=== PATIENT | female | born 1990 | race Caucasian/White ===

== ENCOUNTER 2016-09-15 02:33 | Emergency (ER) | payer OTHER ==
[2016-09-15] MEDS ORDERED: TORAdol 30 mg Injection IM ONE (02:37)
[2016-09-15] MEDS ORDERED: Cyclobenzaprine 10 MG PO ONE (02:37)
[2016-09-15] MEDS ORDERED: TORAdol 30 mg Injection ONE (02:42)
--- NOTE | 2016-09-15 02:42 | ERPHSYRPT ---
- History of Present Illness Time Seen by Provider: 09/15/16 02:37 Source: patient Exam Limitations: no limitations Physician History: The patient is a 26-year-old female who claims that she woke up yesterday morning with left-sided low back pain. She has tried a heating pad all day without relief. She says it she tosses and turns all she sleeps and thinks that she may have hurt it during her sleep. She has a past medical history of MRSA and back pain. Timing/Duration: yesterday Method of Injury: unknown Quality: aching Back Pain Location: lumbar spine, paraspinous muscles Severity of Pain-Max: moderate Severity of Pain-Current: moderate Modifying Factors: Improves With: other (heat) Associated Symptoms: denies symptoms Previous symptoms: same symptoms as today Allergies/Adverse Reactions: propoxyphene napsylate [From [facility]-N 100] Allergy (Intermediate, Verified 11/19 14:40) "COULDN'T BREATH" Home Medications: No Home Meds 1 ea UD 12/13/15 [History] Hx Tetanus, Diphtheria Vaccination/Date Given: Yes Hx Influenza Vaccination/Date Given: No Hx Pneumococcal Vaccination/Date Given: No - Review of Systems Constitutional: No Fever, No Chills Eyes: No Symptoms Ears, Nose, & Throat: No Symptoms Respiratory: No Cough, No Dyspnea Cardiac: No Chest Pain, No Edema, No Syncope Abdominal/Gastrointestinal: No Abdominal Pain, No Nausea, No Vomiting, No Diarrhea Genitourinary Symptoms: No Dysuria Musculoskeletal: Back Pain Skin: No Rash Neurological: No Dizziness, No Focal Weakness, No Sensory Changes Psychological: No Symptoms Endocrine: No Symptoms Hematologic/Lymphatic: No Symptoms Immunological/Allergic: No Symptoms All Other Systems: Reviewed and Negative - Past Medical History Pertinent Past Medical History: Yes Neurological History: No Pertinent History ENT History: No Pertinent History Cardiac History: No Pertinent History Respiratory History: No Pertinent History Endocrine Medical History: No Pertinent History Musculoskeletal History: No Pertinent History GI Medical History: No Pertinent History History: No Pertinent History Psycho-Social History: No Pertinent History Female Reproductive Disorders: No Pertinent History Other Medical History: 2 csections, cyst removal on left arm - Past Surgical History Past Surgical History: Yes Neuro Surgical History: No Pertinent History Cardiac: No Pertinent History Respiratory: No Pertinent History Gastrointestinal: No Pertinent History Genitourinary: No Pertinent History Musculoskeletal: No Pertinent History Female Surgical History: Section, Tubal Ligation Other Surgical History: cyst removed from arm c/s x2 - Social History Smoking Status: Current every day smoker How long have you smoked: YRS Exposure to second hand smoke: No Drug Use: none Patient Lives Alone: No Significant Family History: no pertinent family hx - Female History Hx Now: No - Physical Exam General Appearance: no apparent distress, alert Eye Exam: PERRL/EOMI, eyes nml inspection Ears, Nose, Throat Exam: normal ENT inspection Neck Exam: normal inspection, non-tender, supple, full range of motion, No meningismus, No midline tenderness Respiratory Exam: normal breath sounds, lungs clear, No respiratory distress Cardiovascular Exam: regular rate/rhythm, normal heart sounds Gastrointestinal Exam: soft, No tenderness, No mass Pelvic Exam: not done Rectal Exam: not done Back Exam: muscle spasm (Examination of the lower back is significant for tenderness to palpation of the left lower paraspinous muscle. This reproduces her pain.) Extremity Exam: normal inspection, normal range of motion, No calf tenderness, No pedal edema Neurologic Exam: alert, oriented x 3, cooperative, bead filler II-XII nml as tested, normal mood/affect, nml station & gait, sensation nml, No motor deficits Skin Exam: normal color, warm, dry, No rash SpO2 Interpretation: normal - Progress Progress: pain not gone completely Counseled pt/family regarding: diagnosis - Departure Time of Disposition: 02:42 Departure Disposition: Home Clinical Impression: Back pain Condition: Stable Critical Care Time: No Additional Instructions: You have low back pain that is caused by a spasm in your left paraspinous muscle. You were given a Toradol 60 mg IM injection in the ER. You were also given Flexeril 10 mg pill to relax a spasm. Continue to take Flexeril 5 mg every 8 hours as needed. Use ice on the area as needed. Follow-up with a local family doctor as needed. Prescriptions: Cyclobenzaprine HCl [Flexeril] 5 mg PO Q8H PRN PRN #6 tablet PRN Reason: Pain
[2016-09-15] MEDS ORDERED: Cyclobenzaprine 10 MG ONE (02:43)
[2016-09-15 02:46] VITALS: O2SAT 98
[2016-09-15 03:21] LABS: ADD URINE CULTURE? YES (NO); Bacteria FEW /HPF (NEGATIVE); Bilirubin NEGATIVE (NEGATIVE); Blood TRACE NON-HEM Ery/ul (0-5); COMPLETE URINE MICROSCOPIC? YES; Collection Type CLEAN CATCH; Epithelial Cells FEW /HPF (FEW); Glucose NEGATIVE (NEGATIVE); Leukocyte Esterase 1+ (NEGATIVE); Mucus SLIGHT /HPF (NEGATIVE)
[2016-09-15 03:32] VITALS: BP 110/68; PULSE 110
== END 2016-09-15 03:32 | disposition home or self-care (01) ==
LOC: ED 02:33
DX: M54.5 Low back pain (principal); M62.830 Muscle spasm of back
CPT/HCPCS: 81000; 87077; 87086; 87186; 96372; 99283; J1885; A9270-GY

== ENCOUNTER 2016-09-18 23:33 | Emergency (ER) | payer OTHER ==
[2016-09-18 23:47] VITALS: BP 117/87; PULSE 106; O2SAT 99
[2016-09-19] MEDS ORDERED: TORAdol 30 mg Injection IM ONE (00:01)
--- NOTE | 2016-09-19 00:08 | ERPHSYRPT ---
- History of Present Illness Time Seen by Provider: 09/18/16 23:56 Source: patient Exam Limitations: no limitations Patient Subjective Stated Complaint: pt states she was getting out of a truck and missed the step and her leg went between the 2 steps. c/o pain in the back of her ankle radiating up to rt hip with movement. also states she has numbness to 2nd and 3rd digits on rt foot since injury Triage Nursing Assessment: pt alert and oriented, asnwers questions approp. pt ambulatory with limping gait noted. respirations nonlabored with lungs cta. skin pink warm and dry. pedal pulse and cap refill to rt leg wnl. pt reports numbness in 2nd and 3rd digits to rt foot. pt states she is unable to dorsiflex rt foot. Physician History: 26-year-old white female arrives with complaint of pain right posterior ankle right leg symptoms since 5:00 this evening. According to patient she was getting out of a truck in her foot and fell down between 2 stairs on the trunk. Patient is complaining of pain in the posterior leg and ankle she states she has pain when she tries to move her ankle especially with dorsiflexion. She states that pain radiates up her leg. Past medical history includes a cyst of the left arm. Past surgical history includes and tubal ligation. Patient was recently seen here on September 15, 2016 for back pain. Method of Injury: other (caught leg between 2 steps when getting out of truck) Occurred: this evening (5 PM) Quality: constant Severity of Pain-Max: moderate Severity of Pain-Current: moderate Lower Extremities Pain: leg: right, ankle: right Modifying Factors: Improves With: movement Associated Symptoms: other (pain with movement of left ankle radiates up posterior right leg) Allergies/Adverse Reactions: propoxyphene napsylate [From Darvocet-N 100] Allergy (Intermediate, Verified 02:57) "COULDN'T BREATH" morphine Allergy (Verified 09/15/16 02:58) Home Medications: Cephalexin Mh 500 mg [Keflex 500 mg] 500 mg PO QID 09/18/16 [History] Hx Tetanus, Diphtheria Vaccination/Date Given: Yes Hx Influenza Vaccination/Date Given: No Hx Pneumococcal Vaccination/Date Given: No - Review of Systems Constitutional: No Fever, No Chills Eyes: No Symptoms Ears, Nose, & Throat: No Symptoms Respiratory: No Cough, No Dyspnea Cardiac: No Chest Pain, No Edema, No Syncope Abdominal/Gastrointestinal: No Abdominal Pain, No Nausea, No Vomiting, No Diarrhea Genitourinary Symptoms: No Dysuria Musculoskeletal: Other (Right leg and ankle pain) Skin: No Symptoms Neurological: Parasthesia (paresthesia to right second and third toe) Psychological: No Symptoms Endocrine: No Symptoms All Other Systems: Reviewed and Negative - Past Medical History Pertinent Past Medical History: Yes Neurological History: No Pertinent History ENT History: No Pertinent History Cardiac History: No Pertinent History Respiratory History: No Pertinent History Endocrine Medical History: No Pertinent History Musculoskeletal History: No Pertinent History GI Medical History: No Pertinent History History: No Pertinent History Psycho-Social History: No Pertinent History Female Reproductive Disorders: No Pertinent History Other Medical History: 2 csections, cyst removal on left arm - Past Surgical History Past Surgical History: Yes Neuro Surgical History: No Pertinent History Cardiac: No Pertinent History Respiratory: No Pertinent History Gastrointestinal: No Pertinent History Genitourinary: No Pertinent History Musculoskeletal: No Pertinent History Female Surgical History: Section, Tubal Ligation Other Surgical History: cyst removed from arm c/s x2 - Social History Smoking Status: Current every day smoker How long have you smoked: YRS Exposure to second hand smoke: No Drug Use: none Patient Lives Alone: Yes Significant Family History: no pertinent family hx - Female History Hx Last Menstrual Period: current Hx Now: No - Nursing Vital Signs Nursing Vital Signs: Initial Vital Signs Temperature 98.8 F Temperature Source Oral Pulse Rate 106 Respiratory Rate 22 Blood Pressure [] 117/87 Pain Intensity 10 - Physical Exam General Appearance: mild distress Eyes, Ears, Nose, Throat Exam: moist mucous membranes Neck Exam: non-tender, supple Cardiovascular/Respiratory Exam: chest non-tender, normal breath sounds, regular rate/rhythm, no respiratory distress Gastrointestinal/Abdominal Exam: non-tender, guarding Back Exam: normal inspection, No vertebral tenderness Hips Exam: bilateral: non-tender, normal inspection, normal range of motion Legs Exam: right leg: other (patient able to fully extend knee and leg right leg on bed without tenderness no hip tenderness no knee tenderness positive plantar flexion with squeezing patient's calf, dorsal pedal posterior tibial pulses intact 2 over 4 complains of pain with palpation lower right leg, pain with palpation of dorsal pedal posterior pulse good capillary refill all toes sensation intact all toes), left leg: non-tender, normal inspection, normal range of motion Knees Exam: bilateral knee: non-tender, normal inspection, normal range of motion, no evidence of injury Ankle Exam: left ankle: non-tender, normal inspection, normal range of motion, bilateral ankle: no evidence of injury Foot Exam: right foot: other (Patient complains of pain when dorsal proximal footpalpated and when dorsal pedal posterior tibial pulses palpated good capillary refill all toes sensation intact all toes), left foot: non-tender, normal inspection, normal range of motion, bilateral foot: no evidence of injury Neuro/Tendon Exam: normal sensation, normal motor functions Mental Status Exam: alert, oriented x 3, cooperative Skin Exam: normal color, warm, dry SpO2 Interpretation: normal (99() SpO2: 99 Oxygen Delivery: Room Air - Course Nursing assessment & vital signs reviewed: Yes - Radiology Exams Right Ankle X-ray Interpretation: Interpreted by me, Negative, No Fracture, No Subluxation Right Lower Leg X-ray Interpretation: Interpreted by me, Negative, No Fracture, No Subluxation Ordered Tests: Active Orders 24 hr Category Date Time Status Dex Bandage Application -[facility] STAT Care 09/19/16 00:42 Active Crutches STAT Care 09/19/16 00:42 Active ANKLE (3 VIEWS) Stat Exams 09/19/16 00:00 Taken LOWER LEG Stat Exams 09/19/16 00:00 Taken Medication Summary Discontinued Medications Generic Name Dose Route Start Last Admin Trade Name Arelis PRN Reason Stop Dose Admin Ketorolac Tromethamine 60 mg 09/19/16 00:01 09/19/16 00:17 Toradol 30 Mg Injection IM 09/19/16 00:02 60 mg STAT ONE Administration Ketorolac Tromethamine Confirm 09/19/16 00:15 Toradol 30 Mg Injection Administered 09/19/16 00:16 Dose 60 mg .ROUTE .STK-MED ONE - Progress Progress: improved Progress Note: 09/19/16 00:11 This is a 26-year-old white female she arrives with complaint of pain in her right lower leg right ankle after she states that her right leg went down between 2 stairs when getting out of a truck at a proximally 5:00. Patient complains of pain in the lower leg and the ankle she states she has pain with plantar flexion of her ankle. On physical examination patient is able to sit with her leg on the bed with her knee fully extended and her heel resting on the bed. She has plantar flexion with squeezing her calf she complains of pain with palpation of the lower leg and actually complains of pain when her posterior tibial dorsal pedal pulses are palpated. There is no obvious ecchymosis no swelling. She has good capillary refill to the right foot sensation is intact all right toes. Will go ahead and give patient Toradol 60 mg IM obtain x-ray of the patient's right ankle and leg. 09/19/16 00:43 X-ray of the patient's ankle and the right tib-fib both negative. Patient improved but still some tenderness on the right distal lateral lower leg. Will go ahead and apply Dex wrap to the right ankle. Place patient on crutches. Write for Naprosyn for pain. Patient ice and elevate her ankle crutches weightbearing as tolerated patient follow-up with her family doctor if symptoms are worse no better in 48 hours or persist longer than one week. 09/19/16 01:34 Patient's x-rays result results were reviewed with the patient I indicated that I did not see any fractures him that x-rays would be reread tomorrow. Talked with the patient and told her that we would go ahead and place Dex wrap on her right ankle give her crutches weightbearing as tolerated and write for Naprosyn for her pain. Patient indicated understanding of this and I went ahead and wrote for orders for crutches, Dex wrap, and wrote prescription on the computer for Naprosyn. Unfortunately however the nurse reports that the patient refused Dex wrap and crutches and left without signing stating that she would find another doctor. - Departure Time of Disposition: 00:44 Departure Disposition: Home Clinical Impression: Right leg pain, Musculoskeletal strain Right ankle pain Qualifiers: Chronicity: acute Qualified Code(s): M25.571 - Pain in right ankle and joints of right foot Condition: Fair Critical Care Time: No Referrals: DOCTOR,NO FAMILY [Primary Care Provider] - Instructions: Ankle Pain, Leg Pain Additional Instructions: Return home. Ice and elevate right leg and ankle 24-48 hours. Crutches weightbearing as tolerated. Follow-up with your family doctor if symptoms are worse, no better in 48 hours or persist longer than one week. Return for acute distress or for severe symptoms. Naprosyn 500 mg orally twice a day with food as needed for pain. Your x-rays have been preliminarily read it'll be reread tomorrow you will be contacted if any discrepancies are noted. Prescriptions: Naproxen [Naprosyn] 500 mg PO BIDWMEALS #20 tablet
[2016-09-19] MEDS ORDERED: TORAdol 30 mg Injection ONE (00:15)
--- NOTE | 2016-09-19 09:08 | XRAY ---
Indication: Posterior ankle pain following fall. Comparison: December 19, 2010. 3 views of the right ankle again demonstrates normal bones, articulation, and soft tissues with incidental tiny cuboid accessory ossicle.
--- NOTE | 2016-09-19 09:10 | XRAY ---
Indication: Pain following fall. Comparison: None. 2 views of the right lower leg demonstrates normal bones, articulation, and soft tissues with incidental bipartite patella.
== END 2016-09-19 01:14 | disposition home or self-care (01) ==
LOC: ED 23:33
DX: M25.571 Pain in right ankle and joints of right foot (principal); M79.604 Pain in right leg; T14.8 Other injury of unspecified body region; W10.8XXA Fall (on) (from) other stairs and steps, initial encounter
CPT/HCPCS: 73590; 73610; 96372; 99284; J1885

== ENCOUNTER 2017-02-03 22:50 | Emergency (ER) | payer SELFPAY ==
[2017-02-03] MEDS ORDERED: MOTRIN 600 MG PO ONE (23:12)
[2017-02-03 23:14] VITALS: BP 131/88; PULSE 72; O2SAT 98
[2017-02-03] MEDS ORDERED: MOTRIN 600 MG ONE (23:16)
--- NOTE | 2017-02-03 23:17 | ERPHSYRPT ---
- History of Present Illness Time Seen by Provider: 02/03/17 23:09 Source: patient Patient Subjective Stated Complaint: twisted left foot going down stair. denies ankle for knee pain.. Triage Nursing Assessment: alert and oriented. left foot pain with swelling and brusing. staets twisted foot going down stairs. denies ankle or knee pain..states did not go down just twisted foot. + pedal pulse present. Ice bag placed on arrival Physician History: CC: left foot pain Hx: 27 y/o patient with no local doctor. She twisted left foot with inversion injury on a step one hour ago. Pain, bruising, swelling left foot. No other injuries. States not . In opioid recovery. Severity of Pain-Max: moderate Severity of Pain-Current: moderate Lower Extremities Pain: foot: left Allergies/Adverse Reactions: propoxyphene napsylate [From [employer]-N 100] Allergy (Intermediate, Verified 02:57) "COULDN'T BREATH" morphine Allergy (Verified 09/15/16 02:58) Home Medications: Cephalexin Mh 500 mg [Keflex 500 mg] 500 mg PO QID 09/18/16 [History] Hx Tetanus, Diphtheria Vaccination/Date Given: Yes Hx Influenza Vaccination/Date Given: No Hx Pneumococcal Vaccination/Date Given: No Immunizations Up to Date: Yes - Review of Systems Constitutional: No Symptoms Musculoskeletal: Injury (left foot), No Back Pain, No Neck Pain Neurological: No Focal Weakness, No Parasthesia - Past Medical History Pertinent Past Medical History: Yes Neurological History: No Pertinent History ENT History: No Pertinent History Cardiac History: No Pertinent History Respiratory History: No Pertinent History Endocrine Medical History: No Pertinent History Musculoskeletal History: No Pertinent History GI Medical History: No Pertinent History History: No Pertinent History Psycho-Social History: No Pertinent History Female Reproductive Disorders: No Pertinent History Other Medical History: 2 csections, cyst removal on left arm - Past Surgical History Past Surgical History: Yes Neuro Surgical History: No Pertinent History Cardiac: No Pertinent History Respiratory: No Pertinent History Gastrointestinal: No Pertinent History Genitourinary: No Pertinent History Musculoskeletal: No Pertinent History Female Surgical History: Section, Tubal Ligation Other Surgical History: cyst removed from arm c/s x2 - Social History Smoking Status: Current every day smoker How long have you smoked: YRS Exposure to second hand smoke: No Drug Use: none Patient Lives Alone: Yes Significant Family History: no pertinent family hx - Female History Hx Last Menstrual Period: 1 month Hx Now: No - Nursing Vital Signs Nursing Vital Signs: Initial Vital Signs Temperature 98.0 F 02/03/17 23:03 Pulse Rate 72 02/03/17 23:03 Respiratory Rate 16 02/03/17 23:03 Blood Pressure 131/88 02/03/17 23:03 O2 Sat by Pulse Oximetry 98 02/03/17 23:03 Pain Scale Pain Intensity 7 - Physical Exam General Appearance: alert Neck Exam: supple Cardiovascular/Respiratory Exam: regular rate/rhythm Neuro/Tendon Exam: normal sensation, normal motor functions Mental Status Exam: alert, oriented x 3, cooperative Skin Exam: warm, dry SpO2: 98 Oxygen Delivery: Room Air Comments: left foot prox 5th tender, bruised, swollen. No ankle tenderness. No fibular head tenderness. Skin intact. - Course Nursing assessment & vital signs reviewed: Yes - Radiology Exams left foot X-ray Interpretation: Interpreted by me, No Fracture, Nml Alignment Ordered Tests: Active Orders 24 hr Category Date Time Status Dex Bandage Application -[facility] STAT Care 02/03/17 23:31 Ordered Cold Application STAT Care 02/03/17 23:12 Active Crutches STAT Care 02/03/17 23:31 Ordered Splint STAT Care 02/03/17 23:31 Ordered FOOT (MINIMUM 3 VIEWS) Stat Exams 02/03/17 23:13 Taken Medication Summary Discontinued Medications Generic Name Dose Route Start Last Admin Trade Name Surajq PRN Reason Stop Dose Admin Ibuprofen 600 mg 02/03/17 23:12 02/03/17 23:17 Motrin 600 Mg PO 02/03/17 23:13 600 mg STAT ONE Administration Ibuprofen Confirm 02/03/17 23:16 Motrin 600 Mg Administered 02/03/17 23:17 Dose 600 mg .ROUTE .STK-MED ONE - Progress Progress Note: 02/03/17 23:32 Prelim xray no fx. Dex, darco post op shoe, crutches. She plans follow up with Dr Brito who sees her daughter. Counseled pt/family regarding: diagnosis, need for follow-up, rad results - Departure Time of Disposition: 23:32 Departure Disposition: Home Clinical Impression: Sprain of left foot Qualifiers: Encounter type: initial encounter Qualified Code(s): S93.602A - Unspecified sprain of left foot, initial encounter Condition: Stable Critical Care Time: No Referrals: DOCTOR,NO FAMILY [Primary Care Provider] - CRISSY BRITO [ACTIVE STAFF] - Instructions: Use Crutches, Ligament Sprains Additional Instructions: SPRAINS/STRAINS/CONTUSIONS 1. Rest the affected area as much as possible for the next few days. 2. Apply ice to the affected area for 20-30 minutes at a time, several times a day. 3. If you receive an elastic wrap, wear it only while awake for comfort and support. Re-wrap the elastic wrap if it feels too tight or too loose. 4. If swelling is present, elevate the affected part above the level of the heart for at least 2 to 3 days. 5. Use splints, slings, or crutches as instructed. 6. Watch for severe swelling, coldness, numbness, and discoloration of the fingers and toes. See your family physician or return to the emergency department if any of these are noted. Rx ibuprofen. Follow up with Dr Brito or a family doctor next week. Prescriptions: Ibuprofen 600 mg PO Q6H PRN PRN #20 tablet PRN Reason: Pain
--- NOTE | 2017-02-04 07:38 | XRAY ---
Indication: Pain and swelling following injury. Comparison: None 3 nonweightbearing views of the left foot demonstrates mild soft tissue swelling near the base of the fifth metatarsal. No other bony, articular, or soft tissue abnormalities.
== END 2017-02-03 23:59 | disposition home or self-care (01) ==
LOC: ED 22:50
DX: S93.602A Unspecified sprain of left foot, initial encounter (principal); X50.0XXA Overexertion from strenuous movement or load, initial encounter
CPT/HCPCS: 73630; 99284; A9270-GY

== ENCOUNTER 2017-07-25 10:21 | Emergency (ER) | payer OTHER ==
[2017-07-25] MEDS ORDERED: TORAdol 30 mg Injection IM ONE (10:49)
[2017-07-25] MEDS ORDERED: Phenergan 25 MG INJ IM ONE (10:50)
--- NOTE | 2017-07-25 10:50 | ERPHSYRPT ---
- History of Present Illness Time Seen by Provider: 07/25/17 10:39 Source: patient Exam Limitations: no limitations Patient Subjective Stated Complaint: PT states "I woke up this morning and my right eye was blurry and I had pain on the left side of my head going down into my neck." Triage Nursing Assessment: Pt alert and oriented X3, skin pwd Pt ambulates with an upright steady giat, able to speak in clear full sentences. pt holding her head, unable to get comfortable. Physician History: The patient is a 27-year-old female with her mother complaining that she developed a left-sided headache and blurry vision in her right eye this morning. She took a Tylenol PM and went to sleep for a brief period of time. She woke up and noticed a headache on the left side was still there and she had intermittent blurry vision in her right eye. She has a history of migraine headaches. Some of her migraine headaches have been involved garbled speech with the headache. Today she avoids light and noise. She has vomited. She denies numbness or tingling. Her past medical history significant for migraine headaches, MRSA infections, back pain, and drug abuse. She specifically did not want to have any narcotic pain medicine today. Timing/Duration: today, worse Quality: throbbing Head Pain Location: temporal (left), parietal (left) Severity of Pain-Max: moderate Severity of Pain-Current: moderate Recent Head Trauma: occasional headaches Modifying Factors: Improves With: exposure to light, noise Associated Symptoms: nausea/vomiting, sensitive to light, vision changes, visual disturbance Previous symptoms: same symptoms as today Allergies/Adverse Reactions: propoxyphene napsylate [From Darvocet-N 100] Allergy (Intermediate, Verified 10:25) "COULDN'T BREATH" morphine Allergy (Verified 07/25/17 10:25) Home Medications: No Reportable Medications [No Reported Medications] 07/25/17 [History] Hx Tetanus, Diphtheria Vaccination/Date Given: Yes Hx Influenza Vaccination/Date Given: No Hx Pneumococcal Vaccination/Date Given: No Immunizations Up to Date: Yes - Review of Systems Constitutional: No Fever, No Chills Eyes: Photophobia, Vision Changes Ears, Nose, & Throat: No Symptoms Respiratory: No Cough, No Dyspnea Cardiac: No Chest Pain, No Edema, No Syncope Abdominal/Gastrointestinal: Nausea, Vomiting Genitourinary Symptoms: No Dysuria Musculoskeletal: No Back Pain, No Neck Pain Skin: No Rash Neurological: Headache, No Focal Weakness, No Parasthesia, No Sensory Changes, No Speech Changes Psychological: No Symptoms Endocrine: No Symptoms Hematologic/Lymphatic: No Symptoms Immunological/Allergic: No Symptoms All Other Systems: Reviewed and Negative - Past Medical History Pertinent Past Medical History: Yes Neurological History: No Pertinent History ENT History: No Pertinent History Cardiac History: No Pertinent History Respiratory History: No Pertinent History Endocrine Medical History: No Pertinent History Musculoskeletal History: No Pertinent History GI Medical History: No Pertinent History History: No Pertinent History Psycho-Social History: No Pertinent History Female Reproductive Disorders: No Pertinent History Other Medical History: 2 csections, cyst removal on left arm - Past Surgical History Past Surgical History: Yes Neuro Surgical History: No Pertinent History Cardiac: No Pertinent History Respiratory: No Pertinent History Gastrointestinal: No Pertinent History Genitourinary: No Pertinent History Musculoskeletal: No Pertinent History Female Surgical History: Section, Tubal Ligation Other Surgical History: cyst removed from arm c/s x2 - Social History Smoking Status: Current every day smoker How long have you smoked: years Exposure to second hand smoke: Yes Drug Use: none Patient Lives Alone: No Significant Family History: no pertinent family hx - Female History Hx Last Menstrual Period: 06/23/2017 Hx Now: No - Nursing Vital Signs Nursing Vital Signs: Initial Vital Signs Temperature 98.3 F 07/25/17 10:24 Pulse Rate 60 07/25/17 10:24 Respiratory Rate 18 07/25/17 10:24 Blood Pressure 140/89 07/25/17 10:24 O2 Sat by Pulse Oximetry 99 07/25/17 10:24 Pain Scale Pain Intensity 8 - Physical Exam General Appearance: moderate distress Eye Exam: PERRL/EOMI, photophobia Ears, Nose, Throat Exam: normal ENT inspection, moist mucous membranes Neck Exam: normal inspection, supple, full range of motion, No meningismus Respiratory Exam: normal breath sounds, lungs clear Cardiovascular Exam: regular rate/rhythm, normal heart sounds Gastrointestinal/Abdominal Exam: soft, No tenderness, No distention Back Exam: normal inspection, normal range of motion Extremity Exam: normal inspection Mental Status Exam: alert, oriented x 3, 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 Exam: normal hearing, normal speech, PERRL, tongue midline, No abnormal eye position, No abnormal gag reflex, No abnormal pupil position, No abnormal speech , No facial asymmetry, No facial droop, No facial paresthesias, No facial weakness, No gaze palsy, No hearing deficit (R), No hearing deficit (L), No tongue deviation to R, No tongue deviation to L Coordination/Gait Exam: normal cerebellar function Motor/Sensory Exam: no motor deficit, no sensory deficit Skin Exam: normal color, warm, dry, No rash SpO2 Interpretation: normal SpO2: 99 Oxygen Delivery: Room Air - Departure Time of Disposition: 10:56 Departure Disposition: Home Clinical Impression: Migraine headache with aura Condition: Stable Critical Care Time: No Referrals: DOCTOR,NO FAMILY [Primary Care Provider] - Additional Instructions: You have a migraine headache with visual changes. You were given Toradol 60 mg and Phenergan 50 mg by IM in the ER. Please rest the rest of the day in a dark quiet room. Follow-up with your primary medical doctor if the condition has not improved.
[2017-07-25] MEDS ORDERED: Phenergan 25 MG INJ ONE (10:53)
[2017-07-25] MEDS ORDERED: TORAdol 30 mg Injection ONE (10:53)
[2017-07-25 11:17] VITALS: BP 132/78; PULSE 52; O2SAT 98
== END 2017-07-25 11:38 | disposition home or self-care (01) ==
LOC: ED 10:21
DX: G43.109 Migraine with aura, not intractable, without status migrainosus (principal); R11.2 Nausea with vomiting, unspecified
CPT/HCPCS: 96372; 99284; J1885; J2550

== ENCOUNTER 2018-03-01 18:01 | Emergency (ER) | payer OTHER ==
[2018-03-01 18:51] VITALS: BP 128/83
--- NOTE | 2018-03-01 19:30 | ERPHSYRPT ---
- History of Present Illness Time Seen by Provider: 03/01/18 18:55 Source: patient Exam Limitations: no limitations Patient Subjective Stated Complaint: STATES HAS BEEN HAVING DIZZINESS FOR ONE WEEK. ALSO HAS HAD URI SYMPTOMS FOR TWO WEEKS. STATES EARS ARE POPPING. Triage Nursing Assessment: AMBULATED TO ROOM PER SELF. SLIGHTLY UNSTEADY ON FEET. DENIES ANY N/V/D. A/O TIMES THREE. Physician History: 28 y/o white female presents with one week h/o ears popping and sinus pressure. in addition, she does complain of dizziness. she has chronic low back pain. no head or back injury. she has a mild cough. Timing/Duration: week(s) (1) Severity: mild Associated Symptoms: cough, No nausea, No vomiting Allergies/Adverse Reactions: propoxyphene napsylate [From Darvocet-N 100] Allergy (Intermediate, Verified 18:48) "COULDN'T BREATH" morphine Allergy (Verified 03/01/18 18:48) Hx Tetanus, Diphtheria Vaccination/Date Given: Yes Hx Influenza Vaccination/Date Given: No Hx Pneumococcal Vaccination/Date Given: No - Review of Systems Constitutional: No Symptoms Eyes: No Symptoms Ears, Nose, & Throat: Nose Congestion Respiratory: Cough, No Dyspnea, No Stridor, No Wheezing Cardiac: No Symptoms, No Chest Pain, No Palpitations, No Syncope Abdominal/Gastrointestinal: No Symptoms, No Abdominal Pain, No Nausea, No Vomiting, No Diarrhea Genitourinary Symptoms: No Symptoms, No Dysuria, No Frequency, No Hematuria Musculoskeletal: No Symptoms Skin: No Symptoms Neurological: Dizziness Psychological: No Symptoms Endocrine: No Symptoms Hematologic/Lymphatic: No Symptoms Immunological/Allergic: No Symptoms All Other Systems: Reviewed and Negative - Past Medical History Pertinent Past Medical History: Yes Neurological History: No Pertinent History ENT History: No Pertinent History Cardiac History: No Pertinent History Respiratory History: No Pertinent History Endocrine Medical History: No Pertinent History Musculoskeletal History: No Pertinent History GI Medical History: No Pertinent History History: No Pertinent History Psycho-Social History: No Pertinent History Female Reproductive Disorders: No Pertinent History Other Medical History: 2 csections, cyst removal on left arm - Past Surgical History Past Surgical History: Yes Neuro Surgical History: No Pertinent History Cardiac: No Pertinent History Respiratory: No Pertinent History Gastrointestinal: No Pertinent History Genitourinary: No Pertinent History Musculoskeletal: No Pertinent History Female Surgical History: Section, Tubal Ligation Other Surgical History: cyst removed from arm c/s x2 - Social History Smoking Status: Current every day smoker How long have you smoked: 10 Exposure to second hand smoke: No Drug Use: none Patient Lives Alone: No Significant Family History: no pertinent family hx - Female History Hx Last Menstrual Period: 03/01/18 Hx Now: No - Nursing Vital Signs Nursing Vital Signs: Initial Vital Signs Temperature 98.1 F 03/01/18 18:40 Pulse Rate 65 03/01/18 18:40 Respiratory Rate 16 03/01/18 18:40 Blood Pressure 128/83 03/01/18 18:40 O2 Sat by Pulse Oximetry 99 03/01/18 18:40 Pain Scale Pain Intensity 0 - Physical Exam General Appearance: no apparent distress, alert, anxiety Eye Exam: PERRL/EOMI Ears, Nose, Throat Exam: normal ENT inspection, pharynx normal, moist mucous membranes Neck Exam: normal inspection, non-tender, supple, full range of motion Respiratory Exam: normal breath sounds, lungs clear, airway intact, No chest tenderness, No respiratory distress, No accessory muscle use, No rhonchi, No wheezing, No stridor Cardiovascular Exam: regular rate/rhythm, normal heart sounds, normal peripheral pulses Gastrointestinal/Abdomen Exam: soft, normal bowel sounds, No tenderness, No guarding, No rebound Pelvic Exam: not done Rectal Exam: not done Back Exam: normal inspection, normal range of motion, vertebral tenderness, No CVA tenderness Extremity Exam: normal inspection, normal range of motion, pelvis stable Neurologic Exam: alert, oriented x 3, 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, 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 Skin Exam: normal color, warm, dry Lymphatic Exam: No adenopathy SpO2 Interpretation: normal SpO2: 99 Oxygen Delivery: Room Air - Course Nursing assessment & vital signs reviewed: Yes Ordered Tests: Active Orders 24 hr Category Date Time Status CULTURE,URINE Stat Lab 03/01/18 20:25 Received HCG,QUALITATIVE URINE Stat Lab 03/01/18 20:25 Completed UA W/RFX UR CULTURE Stat Lab 03/01/18 20:25 Completed Lab/Rad Data: Laboratory Results 03/01/18 03/01/18 Range/Units 20:25 20:25 Urine Color YELLOW (YELLOW) Urine Appearance SLIGHTLY CLOUDY (CLEAR) Urine pH 7.0 (5-6) Ur Specific [place] 1.008 (1.005-1.025) Urine Protein NEGATIVE (Negative) Urine Ketones NEGATIVE (NEGATIVE) Urine Blood NEGATIVE (0-5) [place]/ul Urine Nitrite NEGATIVE (NEGATIVE) Urine Bilirubin NEGATIVE (NEGATIVE) Urine Urobilinogen 4 (0-1) mg/dL Ur Leukocyte Esterase MODERATE (NEGATIVE) Urine WBC (Auto) 3-5 (0-5) /HPF Urine RBC (Auto) NONE (0-2) /HPF U Epithel Cells (Auto) RARE (FEW) /HPF Urine Bacteria (Auto) NONE SEEN (NEGATIVE) /HPF Urine Yeast (Budding) Moderate (NEGATIVE) /HPF Urine Culture Reflexed YES (NO) Urine Glucose NEGATIVE (NEGATIVE) mg/dL Urine HCG, Qual NEGATIVE (Negative) - Progress Progress: unchanged, re-examined Counseled pt/family regarding: lab results, diagnosis, need for follow-up - Departure Time of Disposition: 21:20 Departure Disposition: Home Clinical Impression: UTI (urinary tract infection), Yeast infection Condition: Stable Critical Care Time: No Referrals: DOCTOR,NO FAMILY [Primary Care Provider] - Additional Instructions: drink plenty of fluids. follow up with primary doctor for persistent symptoms Prescriptions: Ciprofloxacin [Cipro 500 MG] 500 mg PO BID #14 tablet Fluconazole 100 mg [Diflucan 100 MG] 100 mg PO DAILY 3 Days #3 tablet
[2018-03-01 20:59] LABS: Appearance SLIGHTLY CLOUDY (CLEAR); Bilirubin NEGATIVE (NEGATIVE); Blood NEGATIVE Ery/ul (0-5); Glucose NEGATIVE (NEGATIVE); Ketones NEGATIVE (NEGATIVE); Leukocyte Esterase MODERATE (NEGATIVE); Nitrite NEGATIVE (NEGATIVE); Protein,Urine Dip NEGATIVE (Negative); Specific Gravity 1.008 (1.005-1.025); Urobilinogen 4 mg/dL (0-1)
[2018-03-01] MEDS ORDERED: Levofloxacin 250MG Tablet PO ONE (21:23)
[2018-03-01] MEDS ORDERED: Levofloxacin 500 MG Tablet ONE (21:28)
[2018-03-01] MEDS ORDERED: Diflucan 100 MG ONE (21:34)
[2018-03-01 22:07] VITALS: PULSE 78; O2SAT 98
[2018-03-02] MEDS ORDERED: Diflucan 100 MG PO ONE (21:25)
== END 2018-03-01 22:02 | disposition home or self-care (01) ==
LOC: ED 18:01
DX: N39.0 Urinary tract infection, site not specified (principal); B37.9 Candidiasis, unspecified; R42 Dizziness and giddiness; F17.200 Nicotine dependence, unspecified, uncomplicated
CPT/HCPCS: 81001; 84703; 87086; 99283; A9270-GY

== ENCOUNTER 2018-03-06 13:42 | Emergency (ER) | payer OTHER ==
[2018-03-06] MEDS ORDERED: ANTIVERT 25 MG PO ONE (14:05)
[2018-03-06] MEDS ORDERED: Sodium Chloride 0.9% 1000 ML 1,000 ML IV STA (14:05)
[2018-03-06 14:26] LABS: BASOPHIL % 0.8 % (0.0-0.4); Basophil (Absolute #) 0.09 (0-0.4); Eosinophil % 4.9 % (0.00-5.0); Eosinophil (Absolute #) 0.58 (0-0.5); Granulocyte Absolute (ANC) 6.64 (1.4-6.9); Granulocytes % 56.4 % (36.0-66.0); Hematocrit 44.8 % (35-47); Lymphocyte (Absolute #) 3.31 (1.0-4.6); Lymphocytes % 28.1 % (24.0-44.0); Mean Cell Volume 93.5 fl (78-100); Mean Corpuscular Hemoglobin 31.3 pg (26-32); Mean Corpuscular Hgb Concent. 33.5 g/dl (32-36); Mean Platelet Volume 10.8 fl (6-9.5); Monocyte (Absolute #) 1.16 (0.0-1.3); Monocytes % 9.8 % (0.0-12.0); Platelet Count 252 K/mm3 (150-450); Red Blood Count 4.79 M/mm3 (4.1-5.4); White Blood Count 11.8 K/mm3 (4.0-10.5)
[2018-03-06 14:41] LABS: ALBUMIN 4.1 g/dL (3.5-5.0); ALKALINE PHOSPHATASE 50 U/L (38-126); ANION GAP 11.9 MEQ/L (5-15); BLOOD UREA NITROGEN 8 mg/dL (7-17); CHLORIDE 102 mmol/L (98-107); Calcium 9.6 mg/dL (8.4-10.2); Carbon Dioxide 28 mmol/L (22-30); Creatinine 1 0.65 mg/dL (0.52-1.04); Glucose 83 mg/dL (74-106); Potassium 4.9 mmol/L (3.5-5.1); SGOT/AST 128 U/L (14-36); SGPT/ALT 197 U/L (0-35); SODIUM 138 mmol/L (137-145); Total Protein 6.9 g/dL (6.3-8.2)
[2018-03-06 14:43] LABS: ETHYL ALCOHOL < 10 mg/dL (0-10)
[2018-03-06] MEDS ORDERED: Sodium Chloride 0.9% 1000 ML 1,000 ML ONE (14:47)
[2018-03-06] MEDS ORDERED: ANTIVERT 25 MG ONE (14:47)
--- NOTE | 2018-03-06 17:29 | ERPHSYRPT ---
- History of Present Illness Source: patient Exam Limitations: no limitations Patient Subjective Stated Complaint: continued dizziness. states she feels unsteady. denies feeling like the room is spinning.. has had cough. denies ear problem,s. n/v Triage Nursing Assessment: alert and able to walk to room with no problems. stakimberly has had a cough but no diffenet than usual. denies fever/ear difficulties./ Nausea and vomiting today. tolerated orthostats with no difficulty and no nystagmus noted. Physician History: Pt is a 28 y/o female that presented to the ED with dizziness. Pt states, she was in the ER a couple of days ago, and was given Cipro for UTI and Diflucan for yeast infection, and was d/c to home. Pt states, still has dizziness. Pt states, feeling like "getting off the merry go round", and unsteady on her feet. Pt denies F/C/S. No SOB or cough. No headache or halos. No seizures. Timing/Duration: day(s) Associated Symptoms: dizziness, fatigue Allergies/Adverse Reactions: propoxyphene napsylate [From Darvocet-N 100] Allergy (Intermediate, Verified 03/24 16:47) "COULDN'T BREATH" morphine Allergy (Verified 03/06/18 16:47) Hx Tetanus, Diphtheria Vaccination/Date Given: Yes Hx Influenza Vaccination/Date Given: No Hx Pneumococcal Vaccination/Date Given: No - Review of Systems Constitutional: No Fever, No Chills Eyes: No Symptoms Ears, Nose, & Throat: No Symptoms Respiratory: No Cough, No Dyspnea Cardiac: No Chest Pain, No Edema, No Syncope Abdominal/Gastrointestinal: No Abdominal Pain, No Nausea, No Vomiting, No Diarrhea Genitourinary Symptoms: No Dysuria Musculoskeletal: No Back Pain, No Neck Pain Skin: No Rash Neurological: Dizziness, Other ("feeling like falling") Psychological: No Symptoms Endocrine: No Symptoms All Other Systems: Reviewed and Negative - Past Medical History Pertinent Past Medical History: Yes Neurological History: No Pertinent History ENT History: No Pertinent History Cardiac History: No Pertinent History Respiratory History: No Pertinent History Endocrine Medical History: No Pertinent History Musculoskeletal History: No Pertinent History GI Medical History: No Pertinent History History: No Pertinent History Psycho-Social History: No Pertinent History Female Reproductive Disorders: No Pertinent History Other Medical History: 2 csections, cyst removal on left arm - Past Surgical History Past Surgical History: Yes Neuro Surgical History: No Pertinent History Cardiac: No Pertinent History Respiratory: No Pertinent History Gastrointestinal: No Pertinent History Genitourinary: No Pertinent History Musculoskeletal: No Pertinent History Female Surgical History: Section, Tubal Ligation Other Surgical History: cyst removed from arm c/s x2 - Social History Smoking Status: Current every day smoker How long have you smoked: 10 Exposure to second hand smoke: Yes Drug Use: none Patient Lives Alone: No Significant Family History: no pertinent family hx - Female History Hx Now: No - Nursing Vital Signs Nursing Vital Signs: Initial Vital Signs Temperature 97.4 F 03/06/18 14:05 Pulse Rate 75 03/06/18 14:05 Respiratory Rate 16 03/06/18 14:05 Blood Pressure 112/78 03/06/18 14:05 O2 Sat by Pulse Oximetry 100 03/06/18 14:05 Pain Scale Pain Intensity 2 - Physical Exam General Appearance: no apparent distress Eye Exam: PERRL/EOMI Ears, Nose, Throat Exam: normal ENT inspection, moist mucous membranes Neck Exam: normal inspection, supple, full range of motion, No meningismus Respiratory Exam: normal breath sounds, lungs clear Cardiovascular Exam: regular rate/rhythm, normal heart sounds Gastrointestinal/Abdominal Exam: soft, No tenderness, No distention Back Exam: normal inspection, normal range of motion Mental Status Exam: alert, oriented x 3, 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 Unix System Administrator STAT Care 03/06/18 14:07 Active EKG-ER Only STAT Care 03/06/18 14:05 Active IV Insertion STAT Care 03/06/18 14:05 Active HEAD WITHOUT CONTRAST [CT] Stat Exams 03/06/18 14:06 Taken CBC W DIFF Stat Lab 03/06/18 14:20 Completed CMP Stat Lab 03/06/18 14:20 Completed ETHYL ALCOHOL Stat Lab 03/06/18 14:20 Completed HCG QUALITATIVE,SERUM Stat Lab 03/06/18 14:20 Completed Medication Summary Discontinued Medications Generic Name Dose Route Start Last Admin Trade Name Freq PRN Reason Stop Dose Admin Sodium Chloride 1,000 mls @ 999 mls/hr 03/06/18 14:05 03/06/18 17:08 Sodium Chloride 0.9% 1000 Ml IV 03/06/18 15:05 Infused .Q1H1M STA Infusion Sodium Chloride Confirm 03/06/18 14:47 Sodium Chloride 0.9% 1000 Ml Administered 03/06/18 14:48 Dose 1,000 mls @ ud .ROUTE .STK-MED ONE Meclizine HCl 25 mg 03/06/18 14:05 03/06/18 14:49 Antivert 25 Mg PO 03/06/18 14:06 25 mg STAT ONE Administration Meclizine HCl Confirm 03/06/18 14:47 Antivert 25 Mg Administered 03/06/18 14:48 Dose 25 mg .ROUTE .STK-MED ONE Lab/Rad Data: Laboratory Result Diagrams 03/06/18 14:20 03/06/18 14:20 Laboratory Results 03/06/18 03/06/18 03/06/18 Range/Units 14:20 14:20 14:20 WBC 11.8 H (4.0-10.5) K/mm3 RBC 4.79 (4.1-5.4) M/mm3 Hgb 15.0 (12.0-16.0) gm/dl Hct 44.8 (35-47) % MCV 93.5 (78-100) fl MCH 31.3 (26-32) pg MCHC 33.5 (32-36) g/dl RDW 13.0 (11.5-14.0) % Plt Count 252 (150-450) K/mm3 MPV 10.8 H (6-9.5) fl Gran % 56.4 (36.0-66.0) % Eos # (Auto) 0.58 H (0-0.5) Absolute Lymphs (auto) 3.31 (1.0-4.6) Absolute Monos (auto) 1.16 (0.0-1.3) Lymphocytes % 28.1 (24.0-44.0) % Monocytes % 9.8 (0.0-12.0) % Eosinophils % 4.9 (0.00-5.0) % Basophils % 0.8 (0.0-0.4) % Absolute Granulocytes 6.64 (1.4-6.9) Basophils # 0.09 (0-0.4) Sodium 138 (137-145) mmol/L Potassium 4.9 (3.5-5.1) mmol/L Chloride 102 (98-107) mmol/L Carbon Dioxide 28 (22-30) mmol/L Anion Gap 11.9 (5-15) MEQ/L BUN 8 (7-17) mg/dL Creatinine 0.65 (0.52-1.04) mg/dL Estimated GFR > 60.0 ML/MIN Glucose 83 (74-106) mg/dL Calcium 9.6 (8.4-10.2) mg/dL Total Bilirubin 0.60 (0.2-1.3) mg/dL AST 128 H (14-36) U/L ALT 197 H (0-35) U/L Alkaline Phosphatase 50 (38-126) U/L Serum Total Protein 6.9 (6.3-8.2) g/dL Albumin 4.1 (3.5-5.0) g/dL Serum , Qual NEGATIVE (Negative) Ethyl Alcohol < 10 (0-10) mg/dL - Progress Progress: improved Progress Note: 03/06/18 17:31 Pt received a littler of IVF, and Meclizine. She is feeling better post current therapy. Pt will get a prescription for meclizine, and she was advised to f/u with her PCP, and if needed, get referral to Neurology. Blood Culture(s) Obtained: No Antibiotics given: No Will see patient in: office Counseled pt/family regarding: lab results, diagnosis, need for follow-up - Departure Time of Disposition: 17:35 Departure Disposition: Home Clinical Impression: Vertigo Condition: Fair Critical Care Time: No Referrals: DOCTOR,NO FAMILY [Primary Care Provider] - Prescriptions: Meclizine HCl 25 mg [Antivert 25 mg] 1 mg PO Q6HPRN PRN 5 Days #20 tablet PRN Reason: Dizziness
[2018-03-06 17:44] VITALS: BP 109/74; PULSE 68; O2SAT 99
--- NOTE | 2018-03-06 18:52 | XRAY ---
Indication: Lightheaded and dizziness. Multiple contiguous axial images obtained through the head without contrast. Comparison: July 13, 2009. Stable normal appearing brain parenchyma, ventricles, and bony calvarium. Visualized paranasal sinuses and mastoid air cells are clear. Impression: Stable normal CT head without contrast exam. Comment: Preliminary interpretation was made by [facility]. No discrepancy. CTDI 70.55
== END 2018-03-06 17:51 | disposition home or self-care (01) ==
LOC: ED 13:42
DX: R42 Dizziness and giddiness (principal)
CPT/HCPCS: 36415; 70450; 80053; 80307; 81025; 85025; 93005; 93041; 96360; 99284; A9270-GY; G0480

== ENCOUNTER 2019-02-14 11:47 | Emergency (ER) | payer MEDICAID ==
--- NOTE | 2019-02-14 12:10 | ERPHSYRPT ---
- History of Present Illness Source: patient Exam Limitations: no limitations Patient Subjective Stated Complaint: pt to ER with complaints of possible dental abscess. pt states she has a broken tooth on L upper and feels a knot in her gum. pt states she can smell the infection. Triage Nursing Assessment: pt to ER with complaints of possible dental abscess. pt states she has a broken tooth on L upper side. Physician History: Patient has left upper tooth pain. H/o of dental abscess. She continues to smoke. She has not seen her dentist for this. Timing/Duration: gradual onset Severity: mild Prearrival Treatment: over the counter meds Modifying Factors: Improves With: activity, rest Associated Symptoms: tooth pain Allergies/Adverse Reactions: propoxyphene napsylate [From [employer] Interactive[employer] 100] Allergy (Intermediate, Verified 02/21 12:00) "COULDN'T BREATH" morphine Allergy (Verified 02/14/19 12:00) Hx Tetanus, Diphtheria Vaccination/Date Given: Yes Hx Influenza Vaccination/Date Given: No Hx Pneumococcal Vaccination/Date Given: No Immunizations Up to Date: Yes - Review of Systems Constitutional: No Fever, No Chills Eyes: No Symptoms Ears, Nose, & Throat: No Symptoms, Loose Teeth, Other (tooth pain ) Respiratory: No Cough, No Dyspnea Cardiac: No Chest Pain, No Edema, No Syncope Abdominal/Gastrointestinal: No Abdominal Pain, No Nausea, No Vomiting, No Diarrhea Genitourinary Symptoms: No Dysuria Musculoskeletal: No Back Pain, No Neck Pain Skin: No Rash Neurological: No Dizziness, No Focal Weakness, No Sensory Changes Psychological: No Symptoms Endocrine: No Symptoms All Other Systems: Reviewed and Negative - Past Medical History Pertinent Past Medical History: No Neurological History: No Pertinent History ENT History: No Pertinent History Cardiac History: No Pertinent History Respiratory History: No Pertinent History Endocrine Medical History: No Pertinent History Musculoskeletal History: No Pertinent History GI Medical History: No Pertinent History History: No Pertinent History Psycho-Social History: No Pertinent History Female Reproductive Disorders: No Pertinent History Other Medical History: 2 csections, cyst removal on left arm - Past Surgical History Past Surgical History: Yes Neuro Surgical History: No Pertinent History Cardiac: No Pertinent History Respiratory: No Pertinent History Gastrointestinal: No Pertinent History Genitourinary: No Pertinent History Musculoskeletal: No Pertinent History Female Surgical History: Section, Tubal Ligation Other Surgical History: cyst removed from arm c/s x2 - Social History Smoking Status: Current every day smoker How long have you smoked: 10 Exposure to second hand smoke: Yes Drug Use: none Patient Lives Alone: No Significant Family History: no pertinent family hx - Female History Hx Now: No - Nursing Vital Signs Nursing Vital Signs: Initial Vital Signs Temperature 98.7 F 02/14/19 11:52 Pulse Rate 73 02/14/19 11:52 Respiratory Rate 18 02/14/19 11:52 Blood Pressure 136/89 02/14/19 11:52 O2 Sat by Pulse Oximetry 100 02/14/19 11:52 Pain Scale Pain Intensity 4 - Physical Exam General Appearance: no apparent distress, alert Eye Exam: bilateral eye: PERRL, EOMI Nasal Exam: normal inspection Throat Exam: pharynx normal, moist mucus membranes, No tonsillar exudate Neck Exam: supple Cardiovascular/Respiratory Exam: normal breath sounds, regular rate/rhythm Abdominal Exam: non-tender, soft Neurologic Exam: alert, oriented x 3, sensation nml, No motor deficits Skin Exam: normal color, warm, dry SpO2: 100 Comments: Patient has right upper tooth pain. Poor dentition. No signs of obvious abscess. No signs of ludwigs angina. No other signs of infection. - Progress Progress: pain not gone completely Progress Note: 02/14/19 12:43 MDM Poor dentition without obvious abscess. We will treat with penicillin and she will need close follow up with a dentist. - Departure Departure Disposition: Home (Patient follow up with dentist. ) Clinical Impression: Pain due to dental caries, Pain, dental Condition: Stable Critical Care Time: No Referrals: DOCTOR,NO FAMILY [Primary Care Provider] - Follow Up with PCP (se) Instructions: Tooth Decay, Adult (DC) Prescriptions: Penicillin V Potassium 500 mg PO QID #28 tablet
[2019-02-14 12:24] VITALS: BP 123/86; PULSE 72
[2019-02-14 12:44] VITALS: O2SAT 100
== END 2019-02-14 12:30 | disposition home or self-care (01) ==
LOC: ED 11:47
DX: K02.9 Dental caries, unspecified (principal)
CPT/HCPCS: 99283

== ENCOUNTER 2019-04-28 03:45 | Emergency (ER) | payer SELFPAY ==
[2019-04-28] MEDS ORDERED: Lactated Ringers 1,000 ML IV ONE ×2 (04:03→04:22)
[2019-04-28 04:44] LABS: Absolute Neutrophil Ct (ANC) 11.09 (1.4-6.9); BASOPHIL % 0.6 % (0.0-0.4); Basophil (Absolute #) 0.09 (0-0.4); Eosinophil % 2.6 % (0.00-5.0); Eosinophil (Absolute #) 0.42 (0-0.5); Hemoglobin 14.8 gm/dl (12.0-16.0); Lymphocytes % 19.3 % (24.0-44.0); Mean Cell Volume 92.8 fl (78-100); Mean Corpuscular Hemoglobin 31.2 pg (26-32); Mean Corpuscular Hgb Concent. 33.6 g/dl (32-36); Mean Platelet Volume 10.7 fl (7.5-11.0); Monocyte (Absolute #) 1.33 (0.0-1.3); Monocytes % 8.3 % (0.0-12.0); Neutrophil % 69.2 % (36.0-66.0); Platelet Count 223 K/mm3 (150-450); Red Blood Count 4.74 M/mm3 (4.1-5.4); Red Cell Distribution Width 12.6 % (11.5-14.0)
[2019-04-28 04:52] LABS: INR 0.97 (0.8-3.0)
[2019-04-28 04:55] LABS: PTT 32.6 SECONDS (25.3-37.0)
[2019-04-28 04:56] LABS: ALBUMIN 4.1 g/dL (3.5-5.0); ALKALINE PHOSPHATASE 52 U/L (38-126); ANION GAP 12.5 MEQ/L (5-15); BLOOD UREA NITROGEN 8 mg/dL (7-17); CHLORIDE 105 mmol/L (98-107); Calcium 9.1 mg/dL (8.4-10.2); Carbon Dioxide 24 mmol/L (22-30); Creatinine 1 0.67 mg/dL (0.52-1.04); ETHYL ALCOHOL 103 mg/dL (0-10); Glucose 120 mg/dL (74-106); Potassium 3.7 mmol/L (3.5-5.1); SGOT/AST 197 U/L (14-36); SGPT/ALT 116 U/L (0-35); SODIUM 138 mmol/L (137-145); Total Protein 7.1 g/dL (6.3-8.2)
[2019-04-28 04:59] LABS: Amphetamine,Urine NEGATIVE (NEGATIVE); Barbiturate,Urine NEGATIVE (NEGATIVE); Benzodiazepine,Urine NEGATIVE (NEGATIVE); Cocaine,Urine NEGATIVE (NEGATIVE); Methadone,Urine NEGATIVE (NEGATIVE); Opiate,Urine NEGATIVE (NEGATIVE); PCP,Urine NEGATIVE (NEGATIVE); THC,Urine NEGATIVE (NEGATIVE)
[2019-04-28 05:00] LABS: Amourphous Crystal FEW /HPF (NEGATIVE); Appearance CLEAR (CLEAR); Bilirubin NEGATIVE (NEGATIVE); Blood LARGE Ery/ul (0-5); Glucose 50 mg/dL (NEGATIVE); Ketones NEGATIVE (NEGATIVE); Leukocyte Esterase NEGATIVE (NEGATIVE); Mucus SLIGHT /HPF (NEGATIVE); Nitrite NEGATIVE (NEGATIVE); Protein,Urine Dip 30 (Negative); Specific Gravity 1.002 (1.005-1.025); Urobilinogen NEGATIVE mg/dL (0-1)
--- NOTE | 2019-04-28 06:07 | ERPHSYRPT ---
- History of Present Illness Source: patient, family Exam Limitations: no limitations Patient Subjective Stated Complaint: pt states she walked off of a 8 foot loft and landed face first. states floor is concrete covered with layer of carpet. c/ o worst pain in rt ribs and difficulty getting a deep breath. also has pain in lt hand, rt knee Triage Nursing Assessment: pt alert and oriented, answers questions approp. strong smell of etoh from pt. pt ambulatory with slow limping gait noted. respirations nonlabored. lung cta. pt splinting rt ribs with lt hand. bruising and swelling noted to lt hand., lt face with swelling and bruising. abrasion noted to lt chin. rt knee with abrasion and bruising noted. bruising and swelling noted to lt elizalde. no abd tenderness noted. no tenderness or pain to pelvis with palpation. no pain to neck or spine . peripheral pulses intact. cap refill wnl. Occurred: just prior to arrival Reason for Fall: lost balance, slipped, fell from height (approx 8ft) Injuries/Pain Location: face, upper extremity, chest, lower extremity Loss of Consciousness: no loss of consciousness Quality: aching, sharpness Severity of Pain-Max: severe Severity of Pain-Current: severe Modifying Factors: Improves With: movement Associated Symptoms (Fall): chest pain, extremity injury, muscle spasms Allergies/Adverse Reactions: propoxyphene napsylate [From Darvocet-N 100] Allergy (Intermediate, Verified 02/21 12:00) "COULDN'T BREATH" morphine Allergy (Verified 02/14/19 12:00) Hx Tetanus, Diphtheria Vaccination/Date Given: Yes Hx Influenza Vaccination/Date Given: No Hx Pneumococcal Vaccination/Date Given: No Immunizations Up to Date: Yes - Review of Systems Constitutional: No Fever, No Chills Eyes: No Symptoms Ears, Nose, & Throat: No Symptoms Respiratory: Dyspnea, Other (Tender right side lateral ribs), No Cough Cardiac: No Chest Pain, No Edema, No Syncope Abdominal/Gastrointestinal: No Abdominal Pain, No Nausea, No Vomiting, No Diarrhea Genitourinary Symptoms: No Dysuria Musculoskeletal: Fall, Injury, Joint Pain (right knee, left hand), No Back Pain , No Neck Pain Skin: No Rash Neurological: No Dizziness, No Focal Weakness, No Sensory Changes Psychological: No Symptoms Endocrine: No Symptoms All Other Systems: Reviewed and Negative - Past Medical History Pertinent Past Medical History: No Neurological History: No Pertinent History ENT History: No Pertinent History Cardiac History: No Pertinent History Respiratory History: No Pertinent History Endocrine Medical History: No Pertinent History Musculoskeletal History: No Pertinent History GI Medical History: No Pertinent History History: No Pertinent History Psycho-Social History: No Pertinent History Female Reproductive Disorders: No Pertinent History Other Medical History: 2 csections, cyst removal on left arm - Past Surgical History Past Surgical History: Yes Neuro Surgical History: No Pertinent History Cardiac: No Pertinent History Respiratory: No Pertinent History Gastrointestinal: No Pertinent History Genitourinary: No Pertinent History Musculoskeletal: No Pertinent History Female Surgical History: Section, Tubal Ligation Other Surgical History: cyst removed from arm c/s x2 - Social History Smoking Status: Current every day smoker How long have you smoked: 10 Exposure to second hand smoke: Yes Drug Use: none Patient Lives Alone: No Significant Family History: no pertinent family hx - Female History Hx Last Menstrual Period: this month Hx Now: No - Nursing Vital Signs Nursing Vital Signs: Initial Vital Signs Temperature 97.7 F 04/28/19 04:03 Pulse Rate 90 04/28/19 04:03 Respiratory Rate 24 04/28/19 04:03 Blood Pressure 136/83 04/28/19 04:03 O2 Sat by Pulse Oximetry 97 04/28/19 04:03 Pain Scale Pain Intensity 12 - [place] Coma Score Best Eye Response (Rashmi): (4) open spontaneously Best Verbal Response ([place]): (5) oriented Best Motor Response ([place]): (6) obeys commands Rashmi Total: 15 - Physical Exam General Appearance: mild distress Head Injury: contusions, ecchymosis (left amxillary area.) ENT Exam: airway nml, other (left maxillary area. ) Neck Exam: supple, trachea midline, full range of motion, normal alignment, normal inspection Respiratory/Chest Exam: chest tenderness (right side), normal breath sounds, rib tenderness, No respiratory distress Cardiovascular Exam: normal heart sounds, regular rate/rhythm Gastrointestinal Exam: soft, normal bowel sounds, No tenderness, No distention, No guarding, No rebound Back Exam: normal inspection, normal range of motion, No vertebral tenderness Extremity Exam: joint swelling (left knee. ), bony point tenderness (diffuse left hand ), pain with movement Neurologic Exam: alert, oriented x 3, cooperative, cycle counter II-XII nml as tested Skin Exam: normal color SpO2: 97 - Course Nursing assessment & vital signs reviewed: Yes EKG Interpreted by Me: Sinus Rhythm, NORMAL AXIS, NORMAL INTERVALS, Non- specific ST Changes - Radiology Exams Knee X-ray Interpretation: Reviewed by me, Displaced Fracture Left Hand X-ray Interpretation: Reviewed by me, Other (question 4th MC fx) - CT Exams Cervical Spine CT Interpretation: Tele-radiologist Report, No Fracture, Other (small PTX) Head CT Interpretation: Tele-radiologist Report, No Fracture, No/Intracranial Hemorrhag Maxillofacial Bones CT Interpretation: Tele-radiologist Report, No Fracture, Other (left maxillary hematoma) Ordered Tests: Active Orders 24 hr Category Date Time Status EKG-ER Only STAT Care 04/28/19 04:03 Active IV Insertion STAT Care 04/28/19 04:03 Active NPO (ED) STAT Care 04/28/19 04:03 Active Oxygen-ED Only Nasal Cannula 2 lpm Care 04/28/19 06:33 Active Splint STAT Care 04/28/19 06:27 Active Splint STAT Care 04/28/19 06:36 Active CERVICAL SPINE WO CONTRAST [CT] Stat Exams 04/28/19 04:04 Taken CHEST WITHOUT CONTRAST [CT] Stat Exams 04/28/19 06:00 Taken FACIAL BONES WO CONTRAST [CT] Stat Exams 04/28/19 04:05 Taken HAND (MINIMUM 3 VIEWS) Stat Exams 04/28/19 06:38 Taken HEAD WITHOUT CONTRAST [CT] Stat Exams 04/28/19 04:05 Taken KNEE (3 VIEWS) Stat Exams 04/28/19 06:38 Taken CBC W DIFF Stat Lab 04/28/19 04:40 Completed CMP Stat Lab 04/28/19 04:40 Completed CULTURE,URINE Stat Lab 04/28/19 04:43 Received ETHYL ALCOHOL Stat Lab 04/28/19 04:40 Completed HCG,QUALITATIVE URINE Stat Lab 04/28/19 04:43 Completed PROTIME WITH INR Stat Lab 04/28/19 04:40 Completed PTT Stat Lab 04/28/19 04:40 Completed UA W/RFX UR CULTURE Stat Lab 04/28/19 04:43 Completed Urine Triage Profile Stat Lab 04/28/19 04:40 Completed Medication Summary Discontinued Medications Generic Name Dose Route Start Last Admin Trade Name Freq PRN Reason Stop Dose Admin Hydromorphone HCl 1 mg 04/28/19 06:28 04/28/19 06:37 Hydromorphone 1 Mg/Ml Ampule IV 04/28/19 06:29 1 mg STAT ONE Administration Hydromorphone HCl Confirm 04/28/19 06:32 Hydromorphone 1 Mg/Ml Ampule Administered 04/28/19 06:33 Dose 1 mg .ROUTE .STK-MED ONE Lactated Ringer's 1,000 mls @ 999 mls/hr 04/28/19 04:03 04/28/19 05:40 Lactated Ringers IV 04/28/19 05:03 Infused .Q1H1M ONE Infusion Lactated Ringer's Confirm 04/28/19 04:22 Lactated Ringers Administered 04/28/19 04:23 Dose 1,000 mls @ ud IV .STK-MED ONE Ondansetron HCl 4 mg 04/28/19 06:28 04/28/19 06:44 Zofran 4 Mg/2 Ml Vial IV 04/28/19 06:29 4 mg STAT ONE Administration Ondansetron HCl Confirm 04/28/19 06:31 Zofran 4 Mg/2 Ml Vial Administered 04/28/19 06:32 Dose 4 mg .ROUTE .STK-MED ONE Lab/Rad Data: Laboratory Result Diagrams 04/28/19 04:40 04/28/19 04:40 Laboratory Results 04/28/19 04/28/19 04/28/19 Range/Units 04:43 04:43 04:40 WBC (4.0-10.5) K/mm3 RBC (4.1-5.4) M/mm3 Hgb (12.0-16.0) gm/dl Hct (35-47) % MCV (78-100) fl MCH (26-32) pg MCHC (32-36) g/dl RDW (11.5-14.0) % Plt Count (150-450) K/mm3 MPV (7.5-11.0) fl Gran % (36.0-66.0) % Eos # (Auto) (0-0.5) Absolute Lymphs (auto) (1.0-4.6) Absolute Monos (auto) (0.0-1.3) Lymphocytes % (24.0-44.0) % Monocytes % (0.0-12.0) % Eosinophils % (0.00-5.0) % Basophils % (0.0-0.4) % Absolute Granulocytes (1.4-6.9) Basophils # (0-0.4) PT (9.95-12.35) SECONDS INR (0.8-3.0) APTT (25.3-37.0) SECONDS Sodium (137-145) mmol/L Potassium (3.5-5.1) mmol/L Chloride (98-107) mmol/L Carbon Dioxide (22-30) mmol/L Anion Gap (5-15) MEQ/L BUN (7-17) mg/dL Creatinine (0.52-1.04) mg/dL Estimated GFR ML/MIN Glucose (74-106) mg/dL Calcium (8.4-10.2) mg/dL Total Bilirubin (0.2-1.3) mg/dL AST (14-36) U/L ALT (0-35) U/L Alkaline Phosphatase (38-126) U/L Serum Total Protein (6.3-8.2) g/dL Albumin (3.5-5.0) g/dL Urine Color YELLOW (YELLOW) Urine Appearance CLEAR (CLEAR) Urine pH 7.0 (5-6) Ur Specific [place] 1.002 (1.005-1.025) Urine Protein 30 (Negative) Urine Ketones NEGATIVE (NEGATIVE) Urine Blood LARGE (0-5) [place]/ul Urine Nitrite NEGATIVE (NEGATIVE) Urine Bilirubin NEGATIVE (NEGATIVE) Urine Urobilinogen NEGATIVE (0-1) mg/dL Ur Leukocyte Esterase NEGATIVE (NEGATIVE) Urine WBC (Auto) 6-10 (0-5) /HPF Urine RBC (Auto) 3-5 (0-2) /HPF U Epithel Cells (Auto) NONE (FEW) /HPF Urine Bacteria (Auto) NONE (NEGATIVE) /HPF Unidentified Crystals 2-5 (NEGATIVE) /HPF Amorphous Crystals FEW (NEGATIVE) /HPF Urine Mucus (Auto) SLIGHT (NEGATIVE) /HPF Urine Culture Reflexed YES (NO) Urine Glucose 50 (NEGATIVE) mg/dL Urine HCG, Qual NEGATIVE (Negative) Urine Opiates Level NEGATIVE (NEGATIVE) Ur Methadone NEGATIVE (NEGATIVE) Urine Barbiturates NEGATIVE (NEGATIVE) Ur Phencyclidine (PCP) NEGATIVE (NEGATIVE) Urine Amphetamine NEGATIVE (NEGATIVE) U Benzodiazepine Level NEGATIVE (NEGATIVE) Urine Cocaine NEGATIVE (NEGATIVE) Urine Marijuana (THC) NEGATIVE (NEGATIVE) Ethyl Alcohol (0-10) mg/dL 04/28/19 04/28/19 04/28/19 Range/Units 04:40 04:40 04:40 WBC 16.0 H (4.0-10.5) K/mm3 RBC 4.74 (4.1-5.4) M/mm3 Hgb 14.8 (12.0-16.0) gm/dl Hct 44.0 (35-47) % MCV 92.8 (78-100) fl MCH 31.2 (26-32) pg MCHC 33.6 (32-36) g/dl RDW 12.6 (11.5-14.0) % Plt Count 223 (150-450) K/mm3 MPV 10.7 (7.5-11.0) fl Gran % 69.2 H (36.0-66.0) % Eos # (Auto) 0.42 (0-0.5) Absolute Lymphs (auto) 3.10 (1.0-4.6) Absolute Monos (auto) 1.33 H (0.0-1.3) Lymphocytes % 19.3 L (24.0-44.0) % Monocytes % 8.3 (0.0-12.0) % Eosinophils % 2.6 (0.00-5.0) % Basophils % 0.6 (0.0-0.4) % Absolute Granulocytes 11.09 H (1.4-6.9) Basophils # 0.09 (0-0.4) PT 11.0 (9.95-12.35) SECONDS INR 0.97 (0.8-3.0) APTT 32.6 (25.3-37.0) SECONDS Sodium 138 (137-145) mmol/L Potassium 3.7 (3.5-5.1) mmol/L Chloride 105 (98-107) mmol/L Carbon Dioxide 24 (22-30) mmol/L Anion Gap 12.5 (5-15) MEQ/L BUN 8 (7-17) mg/dL Creatinine 0.67 (0.52-1.04) mg/dL Estimated GFR > 60.0 ML/MIN Glucose 120 H (74-106) mg/dL Calcium 9.1 (8.4-10.2) mg/dL Total Bilirubin 0.50 (0.2-1.3) mg/dL AST 197 H (14-36) U/L ALT 116 H (0-35) U/L Alkaline Phosphatase 52 (38-126) U/L Serum Total Protein 7.1 (6.3-8.2) g/dL Albumin 4.1 (3.5-5.0) g/dL Urine Color (YELLOW) Urine Appearance (CLEAR) Urine pH (5-6) Ur Specific [place] (1.005-1.025) Urine Protein (Negative) Urine Ketones (NEGATIVE) Urine Blood (0-5) [place]/ul Urine Nitrite (NEGATIVE) Urine Bilirubin (NEGATIVE) Urine Urobilinogen (0-1) mg/dL Ur Leukocyte Esterase (NEGATIVE) Urine WBC (Auto) (0-5) /HPF Urine RBC (Auto) (0-2) /HPF U Epithel Cells (Auto) (FEW) /HPF Urine Bacteria (Auto) (NEGATIVE) /HPF Unidentified Crystals (NEGATIVE) /HPF Amorphous Crystals (NEGATIVE) /HPF Urine Mucus (Auto) (NEGATIVE) /HPF Urine Culture Reflexed (NO) Urine Glucose (NEGATIVE) mg/dL Urine HCG, Qual (Negative) Urine Opiates Level (NEGATIVE) Ur Methadone (NEGATIVE) Urine Barbiturates (NEGATIVE) Ur Phencyclidine (PCP) (NEGATIVE) Urine Amphetamine (NEGATIVE) U Benzodiazepine Level (NEGATIVE) Urine Cocaine (NEGATIVE) Urine Marijuana (THC) (NEGATIVE) Ethyl Alcohol 103 H (0-10) mg/dL - Progress Progress: improved Progress Note: 04/28/19 06:42 Trauma scans of head/face/neck/chest. XR of right knee, left hand. Labs WNL. Pt comfortable. No SOB unless movt causes pain. VSS. XR shows possible fx of left 4th MC, will splint. Knee XR shows patellar fx, will immobilize. pain meds, LR IVF. Awaiting CT chest report to determine PTX extent and where rib fx may be. CT head/face/neck normal. shift change transfer of care to Dr. Chaudhari. 04/28/19 06:58 CT chest confirmed PTX. D/w trauma surgery Dr. Norwood at [facility] who accepts pt. - Departure Departure Disposition: Transfer (Accepted by Dr. Norwood at [facility]. Will tranfer via ground to ER. ) Clinical Impression: Pneumothorax on right, Fall (on) (from) other stairs and steps, initial encounter, Contusion, multiple sites, Hand fracture, left Patellar fracture Qualifiers: Encounter type: initial encounter Fracture type: closed Fracture morphology: transverse Fracture alignment: displaced Laterality: right Qualified Code(s): S82.031A - Displaced transverse fracture of right patella, initial encounter for closed fracture Condition: Stable Critical Care Time: Yes Critical Care Time(excluding separately billable procedures): Critical 30-74 mins Referrals: DOCTOR,NO FAMILY [Primary Care Provider] -
[2019-04-28] MEDS ORDERED: Zofran 4 MG/2 ML VIAL IV ONE (06:28)
[2019-04-28] MEDS ORDERED: Hydromorphone 1 mg/ml Ampule IV ONE (06:28)
[2019-04-28] MEDS ORDERED: Zofran 4 MG/2 ML VIAL ONE (06:31)
[2019-04-28] MEDS ORDERED: Hydromorphone 1 mg/ml Ampule ONE (06:32)
[2019-04-28 06:46] VITALS: O2SAT 97
[2019-04-28 07:31] VITALS: BP 137/85; PULSE 104
--- NOTE | 2019-04-28 08:06 | XRAY ---
Indication: Pain and left facial swelling following 8 foot fall. Multiple contiguous axial images obtained through the head without contrast. Comparison: March 06, 2018. Again normal appearing brain parenchyma, ventricles, and bony calvarium. Mild mucosal thickening of both ethmoid sinuses. Mastoid air cells are clear. CT facial bones and CT cervical spine reported separately. Impression: Mild paranasal sinus disease. Remaining CT head without contrast exam is negative. Comment: Preliminary interpretation was made by [facility]. No critical discrepancy.
--- NOTE | 2019-04-28 08:08 | XRAY ---
Indication: Pain and left facial swelling following 8 foot fall. Multiple contiguous axial images obtained through the cervical spine. Sagittal and coronal reformatted images obtained. Comparison: None. Axial images negative for acute fracture, suspicious bone lesions, or spinal canal stenosis. Sagittal and coronal reformatted images demonstrates cervical lordotic straightening, positional versus paraspinal spasm. Vertebral body heights/disc spaces maintained. No acute compression fracture, subluxation, or jumped facet. Normal appearing craniocervical junction. Visualized noncontrasted soft tissues are unremarkable. CT head, CT facial bones, and CT chest reported separately. Impression: Cervical lordotic straightening. Remaining CT cervical spine is negative. Comment: Preliminary interpretation was made by [facility]. No critical discrepancy.
--- NOTE | 2019-04-28 08:10 | XRAY ---
Indication: Pain and left facial swelling following 8 foot fall. Multiple contiguous axial images obtained through the facial bones. Sagittal and coronal reformatted images obtained. Comparison: None. Mild left facial soft tissue swelling with small subcutaneous hematoma. No acute fracture, suspicious bony lesions, or radiopaque foreign body. Orbits including roof, krause, and floors are intact. Mild mucosal thickening of both ethmoid sinuses. Remaining paranasal sinuses and nasal passages are clear. Moderate nasoseptal deviation to the right. Remaining visualized noncontrasted soft tissues unremarkable. CT head, CT cervical spine, and CT chest reported separately. Impression: Left facial soft tissue swelling/hematoma and incidental paranasal sinuses disease. Remaining CT facial bones is negative. Comment: Preliminary interpretation was made by [facility]. No critical discrepancy.
--- NOTE | 2019-04-28 08:18 | XRAY ---
Indication: Pain and swelling following 8 foot fall. Comparison: None 3 views of the right knee demonstrates a bipartite patella and minimal medial joint space narrowing. No other bony, articular, or soft tissue abnormalities.
--- NOTE | 2019-04-28 08:18 | XRAY ---
Indication: Right-sided pain following 8 foot fall. Multiple contiguous axial images obtained through the chest without contrast as ordered. Comparison: None. Tiny right apical pneumothorax with smaller right base pneumothorax posteriorly. Multiple scattered calcified granulomas bilaterally and minimal bilateral dependent atelectasis. Minimal right apical subpleural cystic changes. Small 9 mm right middle lobe cavitation adjacent to the minor fissure. No infiltrates or effusions. Heart is not enlarged. Aorta is normal in course and caliber. [place] mediastinal and bilateral hilar calcified nodes. No pathologic mediastinal lymphadenopathy. Bony thorax intact. Incidental small L2 [place]l node. Limited upper abdomen demonstrates calcified splenic granuloma. CT cervical spine reported separately. Impression: 1. Tiny right pneumothorax without hemothorax or fracture. 2. Multiple scattered mediastinal/pulmonary calcified granulomas, sequela to old granulomatous disease. Incidental small right middle lobe cavitation. Comment: Preliminary interpretation was made by [facility]. No critical discrepancy.
--- NOTE | 2019-04-28 08:22 | XRAY ---
Indication: Pain and swelling following 8 foot fall. Comparison: None 3 views of the left hand demonstrates nondisplaced vertical fracture distal shaft 4th metacarpal and possibly nondisplaced 5th metacarpal head fracture. No other bony, articular, or soft tissue abnormalities.
== END 2019-04-28 07:32 | disposition short-term general hospital (02) ==
LOC: ED 03:45
DX: S82.031A Displaced transverse fracture of right patella, initial encounter for closed fracture (principal); W17.89XA Other fall from one level to another, initial encounter; R07.81 Pleurodynia; M79.642 Pain in left hand; M25.561 Pain in right knee; S00.83XA Contusion of other part of head, initial encounter; S00.81XA Abrasion of other part of head, initial encounter
CPT/HCPCS: 29126; 36000; 36415; 70450; 70486; 71250; 72125; 73130; 73562; 80053; 80307; 81001; 84703; 85025; 85610; 85730; 87086; 93005; 96360; 96374; 96375; 99285; 99291; J1170; J2405; L1830; G0480

== ENCOUNTER 2019-05-09 13:33 | Emergency (ER) | payer SELFPAY ==
[2019-05-09] MEDS ORDERED: Sodium Chloride 0.9% 1000 ML 1,000 ML ONE (13:59)
[2019-05-09] MEDS ORDERED: Zofran 4 MG/2 ML VIAL ONE (13:59)
[2019-05-09] MEDS ORDERED: SUBLIMAZE 100 MCG/2 ML ONE (13:59)
[2019-05-09] MEDS: Zofran 4 MG/2 ML VIAL IV ONE (14:01)
[2019-05-09] MEDS: SUBLIMAZE 100 MCG/2 ML IV ONE (14:02)
[2019-05-09] MEDS: Sodium Chloride 0.9% 1000 ML 1,000 ML IV STA (14:05)
[2019-05-09 14:10] LABS: Absolute Neutrophil Ct (ANC) 8.48 (1.4-6.9); BASOPHIL % 0.7 % (0.0-0.4); Basophil (Absolute #) 0.09 (0-0.4); Eosinophil % 3.6 % (0.00-5.0); Eosinophil (Absolute #) 0.45 (0-0.5); Hematocrit 40.1 % (35-47); Hemoglobin 13.5 gm/dl (12.0-16.0); Lymphocyte (Absolute #) 2.38 (1.0-4.6); Lymphocytes % 18.8 % (24.0-44.0); Mean Cell Volume 94.6 fl (78-100); Mean Corpuscular Hemoglobin 31.8 pg (26-32); Mean Corpuscular Hgb Concent. 33.7 g/dl (32-36); Mean Platelet Volume 10.7 fl (7.5-11.0); Monocyte (Absolute #) 1.26 (0.0-1.3); Neutrophil % 66.9 % (36.0-66.0); Platelet Count 291 K/mm3 (150-450); Red Blood Count 4.24 M/mm3 (4.1-5.4); Red Cell Distribution Width 12.6 % (11.5-14.0); White Blood Count 12.7 K/mm3 (4.0-10.5)
[2019-05-09 14:17] LABS: ALBUMIN 3.9 g/dL (3.5-5.0); ALKALINE PHOSPHATASE 58 U/L (38-126); AMYLASE 71 U/L (30-110); ANION GAP 8.4 MEQ/L (5-15); BLOOD UREA NITROGEN 9 mg/dL (7-17); CHLORIDE 103 mmol/L (98-107); Calcium 9.1 mg/dL (8.4-10.2); Carbon Dioxide 31 mmol/L (22-30); Creatinine 1 0.65 mg/dL (0.52-1.04); Glucose 87 mg/dL (74-106); LIPASE 97 U/L (23-300); Potassium 4.1 mmol/L (3.5-5.1); SGOT/AST 80 U/L (14-36); SGPT/ALT 93 U/L (0-35); SODIUM 138 mmol/L (137-145); Total Protein 6.7 g/dL (6.3-8.2)
[2019-05-09 14:31] LABS: Appearance SLIGHTLY CLOUDY (CLEAR); Bilirubin NEGATIVE (NEGATIVE); Blood NEGATIVE Ery/ul (0-5); Epithelial Cells RARE /HPF (FEW); Glucose NEGATIVE (NEGATIVE); Ketones TRACE (NEGATIVE); Leukocyte Esterase NEGATIVE (NEGATIVE); Nitrite NEGATIVE (NEGATIVE); Protein,Urine Dip NEGATIVE (Negative); Specific Gravity 1.016 (1.005-1.025); Urobilinogen NEGATIVE mg/dL (0-1)
[2019-05-09 14:33] LABS: INR 0.94 (0.8-3.0); PROTIME 10.6 SECONDS (9.95-12.35)
[2019-05-09 14:55] VITALS: BP 122/72; O2SAT 98
--- NOTE | 2019-05-09 15:38 | ERPHSYRPT ---
- History of Present Illness Time Seen by Provider: 05/09/19 13:55 Patient Subjective Stated Complaint: Abdominal pain Triage Nursing Assessment: Patient ambulated back to ED and transferred self to bed. Patient A+O x3. Patient's skin flushed, warm and dry. Patient complains of abdominal pain that started at 0730 and has gotten worse all day. Patient's abdomen flat and soft with BS X4. Patient's lungs clear a/p isi. Patient has recent trauma after falling out of barn loft breaking her lung and punturing right lung. Patient complains of constant burning pain 12/13. Patient states she has been having diarrhea and N/V. Physician History: Is a 29-year-old female who presents with abdominal pain. Pain is in the epigastric area and radiates to both upper quadrants it started at 7:30 AM the day today.. Jacqui 1 week ago she did suffer a fall from a loft type area in an apartment she landed on there right side she had contusions to the face she also had a displaced fracture of the right patella fracture of the metacarpal of the left hand and a small less than 10% right pneumothorax. She was transferred to [facility] in [place]. Timing/Duration: today Activities at Onset: none Quality: fullness, stabbing Abdominal Pain Onset Location: epigastric Pain Radiation: RUQ, LUQ Severity of Pain-Max: moderate Severity of Pain-Current: moderate Modifying Factors: Improves With: nothing Associated Symptoms: denies symptoms Previous symptoms: same symptoms as today Allergies/Adverse Reactions: propoxyphene napsylate [From Darvocet-N 100] Allergy (Intermediate, Verified 07/23 13:47) "COULDN'T BREATH" morphine Allergy (Verified 05/09/19 13:47) Home Medications: No Reportable Medications [No Reported Medications] 05/09/19 [History] Hx Tetanus, Diphtheria Vaccination/Date Given: Yes Hx Influenza Vaccination/Date Given: No Hx Pneumococcal Vaccination/Date Given: No Immunizations Up to Date: Yes - Review of Systems Constitutional: No Fever, No Chills Eyes: No Symptoms Ears, Nose, & Throat: No Symptoms Respiratory: No Cough, No Dyspnea Cardiac: No Chest Pain, No Edema, No Syncope Abdominal/Gastrointestinal: Abdominal Pain, No Nausea, No Vomiting, No Diarrhea Genitourinary Symptoms: No Dysuria Musculoskeletal: No Back Pain, No Neck Pain Skin: No Rash Neurological: No Dizziness, No Focal Weakness, No Sensory Changes Psychological: No Symptoms Endocrine: No Symptoms All Other Systems: Reviewed and Negative - Past Medical History Pertinent Past Medical History: No Neurological History: No Pertinent History ENT History: No Pertinent History Cardiac History: No Pertinent History Respiratory History: No Pertinent History Endocrine Medical History: No Pertinent History Musculoskeletal History: No Pertinent History GI Medical History: No Pertinent History History: No Pertinent History Psycho-Social History: No Pertinent History Female Reproductive Disorders: No Pertinent History Other Medical History: 2 csections, cyst removal on left arm - Past Surgical History Past Surgical History: Yes Neuro Surgical History: No Pertinent History Cardiac: No Pertinent History Respiratory: No Pertinent History Gastrointestinal: No Pertinent History Genitourinary: No Pertinent History Musculoskeletal: No Pertinent History Female Surgical History: Section, Tubal Ligation Other Surgical History: cyst removed from arm c/s x2 - Social History Smoking Status: Current every day smoker How long have you smoked: 10 Exposure to second hand smoke: Yes Drug Use: none Patient Lives Alone: No Significant Family History: no pertinent family hx - Female History Hx Last Menstrual Period: Currently Hx Now: No - Nursing Vital Signs Nursing Vital Signs: Initial Vital Signs Pulse Rate 86 05/09/19 13:48 Respiratory Rate 18 05/09/19 13:48 Blood Pressure 162/97 05/09/19 13:48 O2 Sat by Pulse Oximetry 97 05/09/19 13:48 Pain Scale Pain Intensity 6 - Physical Exam General Appearance: no apparent distress, alert Eye Exam: PERRL/EOMI, eyes nml inspection Ears, Nose, Throat Exam: normal ENT inspection, pharynx normal, moist mucous membranes Neck Exam: normal inspection, non-tender, supple, full range of motion Respiratory Exam: normal breath sounds, lungs clear, No respiratory distress Cardiovascular Exam: regular rate/rhythm, normal heart sounds Gastrointestinal/Abdomen Exam: soft, tenderness (Gastric area), No mass, No guarding, No rebound Back Exam: normal inspection, normal range of motion, No CVA tenderness, No vertebral tenderness Extremity Exam: normal inspection, normal range of motion, pelvis stable Neurologic Exam: alert, oriented x 3, cooperative, normal mood/affect, nml cerebellar function, sensation nml, No motor deficits Skin Exam: normal color, warm, dry Lymphatic Exam: No adenopathy SpO2 Interpretation: normal SpO2: 98 O2 Delivery: Room Air - Course Nursing assessment & vital signs reviewed: Yes EKG Interpreted by Me: RATE ([id number]), NORMAL AXIS, NORMAL INTERVALS, NORMAL QRS, NORMAL ST-T - CT Exams Chest CT Interpretation: Other (Neurologist report bilateral upper bar subpleural cystic changes and evidence for old granulomatous disease but otherwise no acute changes. On the chest CT) Ordered Tests: Active Orders 24 hr Category Date Time Status EKG-ER Only STAT Care 05/09/19 13:48 Active IV Insertion STAT Care 05/09/19 13:48 Active ABDOMEN AND PELVIS W CONTRAST [CT] Stat Exams 05/09/19 13:51 Taken CHEST WITH CONTRAST [CT] Stat Exams 05/09/19 13:52 Taken AMYLASE Stat Lab 05/09/19 14:00 Completed CBC W DIFF Stat Lab 05/09/19 14:00 Completed CMP Stat Lab 05/09/19 14:00 Completed HCG QUALITATIVE,SERUM Stat Lab 05/09/19 14:00 Completed LIPASE Stat Lab 05/09/19 14:00 Completed Lactic Acid Stat Lab 05/09/19 14:00 Completed PROTIME WITH INR Stat Lab 05/09/19 14:00 Completed TROPONIN Q3H Lab 05/09/19 14:00 Completed TROPONIN Q3H Lab 05/09/19 17:00 Ordered TROPONIN Q3H Lab 05/09/19 20:00 Ordered TROPONIN Q3H Lab 05/09/19 23:00 Ordered TROPONIN Q3H Lab 05/10/19 02:00 Ordered UA W/RFX UR CULTURE Stat Lab 05/09/19 Completed Medication Summary Discontinued Medications Generic Name Dose Route Start Last Admin Trade Name Arelis PRN Reason Stop Dose Admin Fentanyl Citrate 75 mcg 05/09/19 13:48 05/09/19 14:02 Sublimaze 100 Mcg/2 Ml IV 05/09/19 13:49 75 mcg STAT ONE Administration Fentanyl Citrate Confirm 05/09/19 13:59 Sublimaze 100 Mcg/2 Ml Administered 05/09/19 14:00 Dose 100 mcg .ROUTE .STK-MED ONE Sodium Chloride 1,000 mls @ 999 mls/hr 05/09/19 13:48 05/09/19 15:49 Sodium Chloride 0.9% 1000 Ml IV 05/09/19 14:48 Infused .Q1H1M STA Infusion Sodium Chloride Confirm 05/09/19 13:59 Sodium Chloride 0.9% 1000 Ml Administered 05/09/19 14:00 Dose 1,000 mls @ ud .ROUTE .STK-MED ONE Ondansetron HCl 4 mg 05/09/19 13:48 05/09/19 14:01 Zofran 4 Mg/2 Ml Vial IV 05/09/19 13:49 4 mg STAT ONE Administration Ondansetron HCl Confirm 05/09/19 13:59 Zofran 4 Mg/2 Ml Vial Administered 05/09/19 14:00 Dose 4 mg .ROUTE .STK-MED ONE Lab/Rad Data: Laboratory Result Diagrams 05/09/19 14:00 05/09/19 14:00 Laboratory Results 05/09/19 05/09/19 05/09/19 Range/Units Unknown 14:00 14:00 WBC (4.0-10.5) K/mm3 RBC (4.1-5.4) M/mm3 Hgb (12.0-16.0) gm/dl Hct (35-47) % MCV (78-100) fl MCH (26-32) pg MCHC (32-36) g/dl RDW (11.5-14.0) % Plt Count (150-450) K/mm3 MPV (7.5-11.0) fl Gran % (36.0-66.0) % Eos # (Auto) (0-0.5) Absolute Lymphs (auto) (1.0-4.6) Absolute Monos (auto) (0.0-1.3) Lymphocytes % (24.0-44.0) % Monocytes % (0.0-12.0) % Eosinophils % (0.00-5.0) % Basophils % (0.0-0.4) % Absolute Granulocytes (1.4-6.9) Basophils # (0-0.4) PT (9.95-12.35) SECONDS INR (0.8-3.0) Sodium (137-145) mmol/L Potassium (3.5-5.1) mmol/L Chloride (98-107) mmol/L Carbon Dioxide (22-30) mmol/L Anion Gap (5-15) MEQ/L BUN (7-17) mg/dL Creatinine (0.52-1.04) mg/dL Estimated GFR ML/MIN Glucose (74-106) mg/dL Lactic Acid (0.4-2.0) Calcium (8.4-10.2) mg/dL Total Bilirubin (0.2-1.3) mg/dL AST (14-36) U/L ALT (0-35) U/L Alkaline Phosphatase (38-126) U/L Troponin I < 0.012 (0.000-0.034) ng/mL Serum Total Protein (6.3-8.2) g/dL Albumin (3.5-5.0) g/dL Amylase (30-110) U/L Lipase (23-300) U/L Serum , Qual NEGATIVE (Negative) Urine Color YELLOW (YELLOW) Urine Appearance SLIGHTLY CLOUDY (CLEAR) Urine pH 7.0 (5-6) Ur Specific [place] 1.016 (1.005-1.025) Urine Protein NEGATIVE (Negative) Urine Ketones TRACE (NEGATIVE) Urine Blood NEGATIVE (0-5) [place]/ul Urine Nitrite NEGATIVE (NEGATIVE) Urine Bilirubin NEGATIVE (NEGATIVE) Urine Urobilinogen NEGATIVE (0-1) mg/dL Ur Leukocyte Esterase NEGATIVE (NEGATIVE) Urine WBC (Auto) NONE (0-5) /HPF Urine RBC (Auto) NONE (0-2) /HPF U Epithel Cells (Auto) RARE (FEW) /HPF Urine Bacteria (Auto) NONE (NEGATIVE) /HPF Urine Culture Reflexed NO (NO) Urine Glucose NEGATIVE (NEGATIVE) mg/dL 05/09/19 05/09/19 05/09/19 Range/Units 14:00 14:00 14:00 WBC (4.0-10.5) K/mm3 RBC (4.1-5.4) M/mm3 Hgb (12.0-16.0) gm/dl Hct (35-47) % MCV (78-100) fl MCH (26-32) pg MCHC (32-36) g/dl RDW (11.5-14.0) % Plt Count (150-450) K/mm3 MPV (7.5-11.0) fl Gran % (36.0-66.0) % Eos # (Auto) (0-0.5) Absolute Lymphs (auto) (1.0-4.6) Absolute Monos (auto) (0.0-1.3) Lymphocytes % (24.0-44.0) % Monocytes % (0.0-12.0) % Eosinophils % (0.00-5.0) % Basophils % (0.0-0.4) % Absolute Granulocytes (1.4-6.9) Basophils # (0-0.4) PT 10.6 (9.95-12.35) SECONDS INR 0.94 (0.8-3.0) Sodium 138 (137-145) mmol/L Potassium 4.1 (3.5-5.1) mmol/L Chloride 103 (98-107) mmol/L Carbon Dioxide 31 H (22-30) mmol/L Anion Gap 8.4 (5-15) MEQ/L BUN 9 (7-17) mg/dL Creatinine 0.65 (0.52-1.04) mg/dL Estimated GFR > 60.0 ML/MIN Glucose 87 (74-106) mg/dL Lactic Acid 0.8 (0.4-2.0) Calcium 9.1 (8.4-10.2) mg/dL Total Bilirubin 0.80 (0.2-1.3) mg/dL AST 80 H (14-36) U/L ALT 93 H (0-35) U/L Alkaline Phosphatase 58 (38-126) U/L Troponin I (0.000-0.034) ng/mL Serum Total Protein 6.7 (6.3-8.2) g/dL Albumin 3.9 (3.5-5.0) g/dL Amylase 71 (30-110) U/L Lipase 97 (23-300) U/L Serum , Qual (Negative) Urine Color (YELLOW) Urine Appearance (CLEAR) Urine pH (5-6) Ur Specific [place] (1.005-1.025) Urine Protein (Negative) Urine Ketones (NEGATIVE) Urine Blood (0-5) [place]/ul Urine Nitrite (NEGATIVE) Urine Bilirubin (NEGATIVE) Urine Urobilinogen (0-1) mg/dL Ur Leukocyte Esterase (NEGATIVE) Urine WBC (Auto) (0-5) /HPF Urine RBC (Auto) (0-2) /HPF U Epithel Cells (Auto) (FEW) /HPF Urine Bacteria (Auto) (NEGATIVE) /HPF Urine Culture Reflexed (NO) Urine Glucose (NEGATIVE) mg/dL 05/09/19 Range/Units 14:00 WBC 12.7 H (4.0-10.5) K/mm3 RBC 4.24 (4.1-5.4) M/mm3 Hgb 13.5 (12.0-16.0) gm/dl Hct 40.1 (35-47) % MCV 94.6 (78-100) fl MCH 31.8 (26-32) pg MCHC 33.7 (32-36) g/dl RDW 12.6 (11.5-14.0) % Plt Count 291 (150-450) K/mm3 MPV 10.7 (7.5-11.0) fl Gran % 66.9 H (36.0-66.0) % Eos # (Auto) 0.45 (0-0.5) Absolute Lymphs (auto) 2.38 (1.0-4.6) Absolute Monos (auto) 1.26 (0.0-1.3) Lymphocytes % 18.8 L (24.0-44.0) % Monocytes % 10.0 (0.0-12.0) % Eosinophils % 3.6 (0.00-5.0) % Basophils % 0.7 (0.0-0.4) % Absolute Granulocytes 8.48 H (1.4-6.9) Basophils # 0.09 (0-0.4) PT (9.95-12.35) SECONDS INR (0.8-3.0) Sodium (137-145) mmol/L Potassium (3.5-5.1) mmol/L Chloride (98-107) mmol/L Carbon Dioxide (22-30) mmol/L Anion Gap (5-15) MEQ/L BUN (7-17) mg/dL Creatinine (0.52-1.04) mg/dL Estimated GFR ML/MIN Glucose (74-106) mg/dL Lactic Acid (0.4-2.0) Calcium (8.4-10.2) mg/dL Total Bilirubin (0.2-1.3) mg/dL AST (14-36) U/L ALT (0-35) U/L Alkaline Phosphatase (38-126) U/L Troponin I (0.000-0.034) ng/mL Serum Total Protein (6.3-8.2) g/dL Albumin (3.5-5.0) g/dL Amylase (30-110) U/L Lipase (23-300) U/L Serum , Qual (Negative) Urine Color (YELLOW) Urine Appearance (CLEAR) Urine pH (5-6) Ur Specific [place] (1.005-1.025) Urine Protein (Negative) Urine Ketones (NEGATIVE) Urine Blood (0-5) [place]/ul Urine Nitrite (NEGATIVE) Urine Bilirubin (NEGATIVE) Urine Urobilinogen (0-1) mg/dL Ur Leukocyte Esterase (NEGATIVE) Urine WBC (Auto) (0-5) /HPF Urine RBC (Auto) (0-2) /HPF U Epithel Cells (Auto) (FEW) /HPF Urine Bacteria (Auto) (NEGATIVE) /HPF Urine Culture Reflexed (NO) Urine Glucose (NEGATIVE) mg/dL - Progress Progress: improved - Departure Departure Disposition: Home Clinical Impression: Abdominal pain Condition: Stable Critical Care Time: No Referrals: DOCTOR,NO FAMILY [Primary Care Provider] - Instructions: Acute Abdomen (Belly Pain), Adult (DC) Prescriptions: Hydrocodone/APAP 5-325 Tab^^^ [Branscomb 5-325 Tablet^^^] 1 tab PO Q6HPRN PRN #10 tablet MDD 6 PRN Reason: Pain Ondansetron ODT 4 MG [Zofran Odt 4 mg] 4 mg PO Q6H PRN PRN #10 tab.rapdis PRN Reason: Vomiting PANTOPRAZOLE 40 mg Tablet [Protonix 40MG Tablet] 40 mg PO QAM 30 Days #30 tab
--- NOTE | 2019-05-09 15:41 | XRAY ---
Indication: Epigastric pain. Multiple contiguous axial images obtained through the chest using 80 cc Isovue 370 contrast. Comparison: April 28, 2019. Lungs are now fully inflated again with scattered tiny calcified granulomas bilaterally. New 9 mm right middle lobe nodule probably granulomatous. Stable minimal bilateral upper lobe subpleural cystic changes. No new pulmonary mass, infiltrate, or effusion. Heart is not enlarged. Aorta is normal in course and caliber. Stable mediastinal and bilateral hilar calcified nodes. Bony thorax remains intact. CT abdomen/pelvis reported separately. Impression: 1. Again bilateral upper lobe subpleural cystic changes and evidence for old granulomatous disease. 2. No acute cardiopulmonary abnormalities.
--- NOTE | 2019-05-09 15:47 | XRAY ---
Indication: Epigastric pain. Multiple contiguous axial images obtained through the abdomen and pelvis using 80 cc Isovue 370 contrast only. Comparison: Noncontrast exam September 24, 2014. CT chest reported separately. Noncontrasted stomach and bowel loops appear nonobstructed. Normal appendix. New radiopacities in the distal ileum and right hemicolon presumed ingested medication/bismuth. There is now mild diffuse scattered colonic fecal debris throughout. New tampon in situ and new 3.1 cm left ovary cyst. Tiny cul-de-sac free fluid presumed physiologic from rupture/leaking cyst. No free air. Spleen demonstrates a 4.5 cm round hypodense lesion with predominantly centripetal enhancement on delayed images which would favor hemangioma. This was not seen on previous noncontrasted exam. Remaining liver, gallbladder, pancreas, adrenal glands, kidneys, ureters, bladder, uterus, and aorta appear unremarkable. No pathologic retroperitoneal lymphadenopathy. Osseous structures intact. No ventral or inguinal hernias. Impression: 1. New tampon in situ, 3.1 cm left ovary cyst, and tiny cul-de-sac free fluid. 2. New mild diffuse fecal stasis without obstruction. 3. New splenic lesion with enhancement characteristics favoring hemangioma.
[2019-05-09 15:59] VITALS: PULSE 70
== END 2019-05-09 16:51 | disposition home or self-care (01) ==
LOC: ED 13:33
DX: R10.13 Epigastric pain (principal); R10.12 Left upper quadrant pain; R10.11 Right upper quadrant pain; R11.2 Nausea with vomiting, unspecified; R19.7 Diarrhea, unspecified
CPT/HCPCS: 36000; 36415; 71260; 74177; 80053; 81001; 81025; 82150; 83605; 83690; 84484; 85025; 85610; 93005; 96360; 96374; 96375; 99284; J2405; J3010

== ENCOUNTER 2019-05-31 09:55 | Emergency (ER) | payer SELFPAY ==
--- NOTE | 2019-05-31 10:37 | ERPHSYRPT ---
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 pt afebrile on arrival to ED. chronic smokers cough. no SOB. pt states she was told by employer to come to ED for screening in order to return to work. pt has no pain at this time. ambulatory to room, self assist into gown. lung sounds clear and equal, heart sounds clear, bowel sounds active in all quads. A&Ox3, communicates appropriately. Physician History: 29 years old female with history of tobacco abuse with chronic smoker cough presented in the ER with chief complaint of sudden onset fever around 4 AM this morning which is improved after taking Tylenol. She also has a productive clear sputum cough which is not any worse than usual. No shortness of breath. She is complaining of mild generalized body aches and headache which are better after Tylenol. Denies nasal congestion or sore throat. Patient also had 3-4 episodes of nonprojectile, nonbilious vomiting earlier when she had a fever but currently she is not nauseated. Last episode was almost 2 hours ago. No abdominal pain. Timing/Duration: today, sudden, improved Cough Quality/Degree: mild, productive cough, sputum Associated Symptoms: fever, chills, cough, headache, muscle aches Allergies/Adverse Reactions: propoxyphene napsylate [From Darvocet-N 100] Allergy (Intermediate, Verified 10:22) "COULDN'T BREATH" morphine Allergy (Verified 05/31/19 10:22) Home Medications: No Reportable Medications [No Reported Medications] 05/09/19 [History] Hx Tetanus, Diphtheria Vaccination/Date Given: Yes Hx Influenza Vaccination/Date Given: No Hx Pneumococcal Vaccination/Date Given: No Immunizations Up to Date: No Travel Risk - International Travel Have you traveled outside of the country in past 3 weeks: No Have you or anyone close to you been diagnosed with or: No Do your reside in a community with a known COVID-19 case?: Yes If Yes where:: [place] - Coronavirus Screening Has patient experienced Coronavirus symptoms: Yes Symptoms experienced: fever(equal or > 100.4 F) Date of fever onset:: 05/31/19 - Review of Systems Constitutional: Fever, Chills Eyes: No Symptoms Ears, Nose, & Throat: No Symptoms Respiratory: Cough Cardiac: No Symptoms Abdominal/Gastrointestinal: Vomiting Genitourinary Symptoms: No Symptoms Musculoskeletal: Myalgias Skin: No Symptoms Neurological: No Symptoms Psychological: No Symptoms Endocrine: No Symptoms Hematologic/Lymphatic: No Symptoms Immunological/Allergic: No Symptoms - Past Medical History Pertinent Past Medical History: Yes Neurological History: No Pertinent History ENT History: No Pertinent History Cardiac History: No Pertinent History Respiratory History: Other Endocrine Medical History: No Pertinent History Musculoskeletal History: No Pertinent History GI Medical History: No Pertinent History History: No Pertinent History Psycho-Social History: No Pertinent History Female Reproductive Disorders: No Pertinent History Other Medical History: lung disease- unknown diagnosis 05/31/19, 2 csections, cyst removal on left arm - Past Surgical History Past Surgical History: Yes Neuro Surgical History: No Pertinent History Cardiac: No Pertinent History Respiratory: No Pertinent History Gastrointestinal: No Pertinent History Genitourinary: No Pertinent History Musculoskeletal: No Pertinent History Female Surgical History: Section, Tubal Ligation Other Surgical History: cyst removed from arm and c/s x2 - Social History Smoking Status: Current every day smoker How long have you smoked: 10 Exposure to second hand smoke: Yes Drug Use: none Patient Lives Alone: No Significant Family History: no pertinent family hx - Female History Hx Last Menstrual Period: 05/29/19 Hx Now: No - Nursing Vital Signs Nursing Vital Signs: Initial Vital Signs Temperature 98.6 F 05/31/19 10:11 Pulse Rate 104 H 05/31/19 10:11 Respiratory Rate 18 05/31/19 10:11 Blood Pressure 151/90 05/31/19 10:11 O2 Sat by Pulse Oximetry 95 05/31/19 10:11 Pain Scale Pain Intensity 0 - Physical Exam General Appearance: no apparent distress Eye Exam: PERRL/EOMI, eyes nml inspection Ears, Nose, Throat Exam: normal ENT inspection, pharyngeal erythema Neck Exam: normal inspection, non-tender, supple, full range of motion Respiratory Exam: normal breath sounds, lungs clear, No chest tenderness Cardiovascular Exam: regular rate/rhythm, normal heart sounds Gastrointestinal/Abdomen Exam: soft, normal bowel sounds, No tenderness Pelvic Exam: not done Extremity Exam: normal inspection Neurologic Exam: alert, oriented x 3, cooperative, financial investment 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 II-XII nml as tested Skin Exam: normal color SpO2 Interpretation: normal SpO2: 95 O2 Delivery: Room Air - Course Nursing assessment & vital signs reviewed: Yes Ordered Tests: Active Orders 24 hr Category Date Time Status CHEST 2 VIEWS (PA AND LAT) Stat Exams 05/31/19 10:41 Completed HCG,QUALITATIVE URINE Stat Lab 05/31/19 12:44 Completed Lab/Rad Data: Laboratory Results 05/31/19 05/31/19 Range/Units 12:44 10:45 Urine HCG, Qual NEGATIVE (Negative) Influenza Type A Ag NEGATIVE (NEGATIVE) Influenza Type B Ag NEGATIVE (NEGATIVE) RSV (PCR) NEGATIVE (Negative) Group A Strep Antibody NOT DETECTED (NEGATIVE) - Progress Progress: re-examined Air Movement: good Progress Note: 29 years old is evaluated for fever and vomiting this morning. Fever is improved prior to arrival. Lungs are clear to auscultation bilaterally. She has a chronic smoker cough. X-rays negative for any acute findings. Negative strep flu and RSV. No obvious source of infection. It could be viral bronchitis. She does not have any known coronavirus positive contact. At this point she is not a candidate for coronavirus testing. She is advised to practice social distancing, droplet and contact precautions and take over-the- counter meds for symptomatic relief. Discussed signs symptoms of worsening needing return to ER which he seems understanding. Stable for discharge. 05/31/19 13:02 Blood Culture(s) Obtained: No Antibiotics given: No Counseled pt/family regarding: lab results, diagnosis, need for follow-up, rad results, smoking cessation - Departure Departure Disposition: Home Clinical Impression: Bronchitis Condition: Stable Critical Care Time: No Referrals: DOCTOR,NO FAMILY [Primary Care Provider] - CINDY RICHARD [ACTIVE STAFF] - Follow Up with PCP/3 days Instructions: Fever, Adult (DC) Additional Instructions: Tylenol/ibuprofen as needed for fever greater than 100.4. Drink plenty of fluids. Follow-up with primary care for reevaluation. Go back to work if you do not have a fever for 24 hours without any medications. Return to ER for worsening fever cough or if develop shortness of breath etc. Follow social distancing, droplet and contact precautions.
--- NOTE | 2019-05-31 10:48 | XRAY ---
Indication: Fever and vomiting. Comparison: May 06, 2015. PA/lateral chest again demonstrates normal heart, lungs, and bony thorax with incidental scattered calcified granulomas.
[2019-05-31 11:23] LABS: INFLUENZA A NEGATIVE (NEGATIVE); INFLUENZA B NEGATIVE (NEGATIVE); RESPIRATORY SYNCTIAL VIRUS NEGATIVE (Negative)
[2019-05-31 12:29] VITALS: BP 109/72; PULSE 81
[2019-05-31 13:01] VITALS: O2SAT 95
== END 2019-05-31 13:12 | disposition home or self-care (01) ==
LOC: ED 09:55
DX: J40 Bronchitis, not specified as acute or chronic (principal); Z87.891 Personal history of nicotine dependence
CPT/HCPCS: 71046; 84703; 87631; 87651; 99284

== ENCOUNTER 2020-04-28 13:40 | Emergency (ER) | payer OTHER ==
[2020-04-28] MEDS ORDERED: DELTASONE 20 MG PO ONE (14:52)
[2020-04-28] MEDS ORDERED: DELTASONE 20 MG ONE (14:55)
[2020-04-28 15:16] VITALS: O2SAT 98
--- NOTE | 2020-04-28 15:16 | ERPHSYRPT ---
- History of Present Illness Time Seen by Provider: 04/28/20 14:00 Source: patient Exam Limitations: no limitations Patient Subjective Stated Complaint: pt here for a dyr cough for a week Triage Nursing Assessment: pt walked in , face mask in in place, resp easy, skin w/d/p, has dry cough Physician History: Patient is a 30-year-old female presents to our ED for evaluation of a dry cough that she has had for 1 week. Patient has also been experiencing nasal congestion with a green nasal discharge for 1 week as well. Patient symptoms are progressive. Symptoms are mild to moderate in intensity. No specific worsening improving factors. Patient denies chest pain. No shortness of breath. No nausea or vomiting. No diarrhea. No rash. Patient states is otherwise healthy. 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 Patient exposed to many different people. Patient does wear her mask however it is a flimsy cloth mask that appears to provide very little protection. Patient advised that she needs a better mask. Patient is a smoker. Smoking cessation discussed. Patient voices no other complaints or concerns at this time. Timing/Duration: week(s) Cough Quality/Degree: moderate, dry cough Possible Cause: no prior episodes Modifying Factors: Improves With: albuterol inhaler (Patient tried her son's albuterol inhaler. Patient states that this improves her cough.) Associated Symptoms: nasal congestion, nasal drainage, sinus infection, No fever, No chills, No chest pain/soreness, No dizziness, No facial pain, No lightheadedness, No muscle aches, No shortness of breath, No sore throat, No wheezing Allergies/Adverse Reactions: propoxyphene napsylate [From Darvocet-N 100] Allergy (Intermediate, Verified 04/28/20 13:54) "COULDN'T BREATH" morphine Allergy (Verified 04/28/20 13:54) Hx Tetanus, Diphtheria Vaccination/Date Given: Yes Hx Influenza Vaccination/Date Given: No Hx Pneumococcal Vaccination/Date Given: No Immunizations Up to Date: Yes Travel Risk - International Travel Have you traveled outside of the country in past 3 weeks: No - Coronavirus Screening Are you exhibiting any of the following symptoms?: Yes Symptoms: Cough: New Onset, Headaches/Body Aches/Fatigue Close contact with a COVID-19 positive Pt in past 14-21 Days: No - Review of Systems Constitutional: No Symptoms, No Fever, No Chills Eyes: No Symptoms Ears, Nose, & Throat: No Symptoms Respiratory: No Symptoms, No Cough, No Dyspnea Cardiac: No Symptoms, No Chest Pain, No Edema, No Syncope Abdominal/Gastrointestinal: No Symptoms, No Abdominal Pain, No Nausea, No Vomiting, No Diarrhea Genitourinary Symptoms: No Symptoms, No Dysuria Musculoskeletal: No Symptoms, No Back Pain, No Neck Pain Skin: No Symptoms, No Rash Neurological: No Symptoms, No Dizziness, No Focal Weakness, No Sensory Changes Psychological: No Symptoms Endocrine: No Symptoms Hematologic/Lymphatic: No Symptoms Immunological/Allergic: No Symptoms All Other Systems: Reviewed and Negative - Past Medical History Pertinent Past Medical History: Yes Neurological History: No Pertinent History ENT History: No Pertinent History Cardiac History: No Pertinent History Respiratory History: Other Endocrine Medical History: No Pertinent History Musculoskeletal History: No Pertinent History GI Medical History: No Pertinent History History: No Pertinent History Psycho-Social History: No Pertinent History Female Reproductive Disorders: No Pertinent History Other Medical History: lung disease- unknown diagnosis 05/31/19, 2 csections, cyst removal on left arm - Past Surgical History Past Surgical History: Yes Neuro Surgical History: No Pertinent History Cardiac: No Pertinent History Respiratory: No Pertinent History Gastrointestinal: No Pertinent History Genitourinary: No Pertinent History Musculoskeletal: No Pertinent History Female Surgical History: Section, Tubal Ligation Other Surgical History: cyst removed from arm and c/s x2 - Social History Smoking Status: Current every day smoker How long have you smoked: 10 Exposure to second hand smoke: Yes Drug Use: none Patient Lives Alone: No Significant Family History: no pertinent family hx - Female History Hx Last Menstrual Period: apr Hx Now: No - Nursing Vital Signs Nursing Vital Signs: Initial Vital Signs Temperature 97.2 F 04/28/20 13:50 Pulse Rate 78 04/28/20 13:50 Respiratory Rate 16 04/28/20 13:50 Blood Pressure 150/94 04/28/20 13:50 O2 Sat by Pulse Oximetry 98 04/28/20 13:50 Pain Scale Pain Intensity 8 - Physical Exam General Appearance: no apparent distress, alert Eye Exam: PERRL/EOMI, eyes nml inspection Ears, Nose, Throat Exam: normal ENT inspection, TMs normal, pharynx normal, moist mucous membranes Neck Exam: normal inspection, non-tender, supple, full range of motion Respiratory Exam: normal breath sounds, lungs clear, No respiratory distress Cardiovascular Exam: regular rate/rhythm, normal heart sounds Gastrointestinal/Abdomen Exam: soft, No tenderness Back Exam: normal inspection, No CVA tenderness, No vertebral tenderness Extremity Exam: normal inspection, normal range of motion Neurologic Exam: alert, oriented x 3, cooperative, normal mood/affect, sensation nml, No motor deficits Skin Exam: normal color, warm, dry, No rash Lymphatic Exam: No adenopathy SpO2: 98 O2 Delivery: Room Air - Course Nursing assessment & vital signs reviewed: Yes - Radiology Exams Clavicle X-ray Interpretation: Teleradiologist Report (Portable chest again hyperinflated with scattered calcified granulomas. No focal infiltrate consolidation or large effusion. Heart is not enlarged. Bony thorax intact. No new acute findings. Continued nonacute hyperinflated chest with old granulomatous disease.) Ordered Tests: Active Orders 24 hr Category Date Time Status CHEST 1 VIEW (PORTABLE) Stat Exams 04/28/20 15:06 Completed Medication Summary Discontinued Medications Generic Name Dose Route Start Last Admin Trade Name Freq PRN Reason Stop Dose Admin Prednisone 60 mg 04/28/20 14:52 04/28/20 14:56 Deltasone 20 Mg PO 04/28/20 14:53 60 mg STAT ONE Administration Prednisone Confirm 04/28/20 14:55 Deltasone 20 Mg Administered 04/28/20 14:56 Dose 60 mg .ROUTE .STK-MED ONE - Progress Progress: improved Air Movement: good Progress Note: 04/28/20 15:58 Patient reassessed. She feels well. Patient has an inhaler at home that helped her. Work-up suggest bronchitis./URI sinusitis. We will test patient for Covid as well. Patient agrees to follow-up with her primary care doctor within 48 hours for evaluation. Patient does not have a primary care doctor on record. Our no doc for today is Dr. Hurley. Patient referred to Dr. Hurley for follow-up within 48 hours for reevaluation. 04/28/20 16:01 Blood Culture(s) Obtained: No Antibiotics given: No Counseled pt/family regarding: lab results, diagnosis, need for follow-up, rad results - Departure Departure Disposition: Home Clinical Impression: Sinusitis, Bronchitis, Cough, Exposure to COVID-19 virus Condition: Stable Critical Care Time: No Referrals: DOCTOR,NO FAMILY [Primary Care Provider] - LIEN HURLEY [ACTIVE STAFF] - Additional Instructions: Discharge/Care Plan LEIDADULCE MINOR was seen on 04/28/20 in the Emergency Room. The patient was counseled regarding Diagnosis,Lab results, Imaging studies, need for follow up and when to return to the Emergency Room. Prescriptions given: Discharge Note I have spoken with the patient and/or caregivers. I have explained the patient's condition, diagnosis and treatment plan based on the information available to me at this time. I have answered the patient's and/or caregiver's questions and addressed any concerns. The patient and/or caregivers have as good understanding of the patient's diagnosis, condition and treatment plan as can be expected at this point. The vital signs have been stable. The patient's condition is stable and appropriate for discharge from the emergency department. The patient will pursue further outpatient evaluation with the primary care physician or other designated or consulting physician as outlined in the discharge instructions. The patient and/or caregivers are agreeable to this plan of care and follow-up instructions have been explained in detail. The patient and/or caregivers have received these instruction. The patient/and or caregivers are aware that any significant change in condition or worsening of symptoms should prompt an immediate return to this or the closest emergency department or call 911. Prescriptions: Amox Tr/Potass Clav. 875 mg [Augmentin 875-125 Tablet] 1 each PO BID 7 Days #14 tablet Prednisone 10 mg [Deltasone 10 mg] 40 mg PO DAILY 3 Days #12 tablet
--- NOTE | 2020-04-28 15:19 | XRAY ---
Indication: Cough and congestion. Comparison: May 31, 2019. Portable chest again hyperinflated with scattered calcified granulomas. No focal infiltrate, consolidation, or large effusion. Heart is not enlarged. Bony thorax intact. No new/acute findings. Impression: Continued nonacute hyperinflated chest with old granulomatous disease.
[2020-04-28 16:36] VITALS: BP 128/56; PULSE 78
== END 2020-04-28 16:36 | disposition home or self-care (01) ==
LOC: ED 13:40
DX: R05 Cough (principal); J32.9 Chronic sinusitis, unspecified; J40 Bronchitis, not specified as acute or chronic; Z20.822 Contact with and (suspected) exposure to COVID-19; R09.81 Nasal congestion; F17.210 Nicotine dependence, cigarettes, uncomplicated
CPT/HCPCS: 71045; 99284; U0003; A9270-GY

== ENCOUNTER 2020-06-09 15:56 | Emergency (ER) | payer OTHER ==
[2020-06-09 16:10] VITALS: O2SAT 99
[2020-06-09] MEDS ORDERED: TORAdol 30 mg Injection IM ONE (16:19)
--- NOTE | 2020-06-09 16:25 | ERPHSYRPT ---
- History of Present Illness Time Seen by Provider: 06/09/20 16:05 Source: patient Exam Limitations: no limitations Patient Subjective Stated Complaint: Mouth pain Triage Nursing Assessment: Patient ambulated back to ED and transferred self to bed. Patient A+O X3. Patient's skin pink, warm and dry. Patient complains of constant aching pain to mouth 12/13. Patient states last she had 9 teeth extracted and was not given any pain meds or atb. Patient called dentist today and was instructed to come to ER due to he is not able to prescibe meds. Upper gums noted to be red and swollen. Physician History: Patient is a 30-year-old female presents to our ED for evaluation of dental pain. Patient had 9 teeth extracted approximately 5 days ago. Patient feeling a throbbing aching pain at this time. No fever. No trauma. No nausea or vomiting. No drainage. Symptoms are mild to moderate in intensity. No specific worsening improving factors. Patient has allergies to narcotics. Patient did call her dentist who advised her to come to our ED for an evaluation. Patient otherwise healthy. She voices no other complaints or concerns at this time. Timing/Duration: today Severity: moderate Modifying Factors: Improves With: nothing Associated Symptoms: denies symptoms Allergies/Adverse Reactions: propoxyphene napsylate [From Darvocet-N 100] Allergy (Intermediate, Verified 06/09/20 16:04) "COULDN'T BREATH" morphine Allergy (Verified 06/09/20 16:04) Hx Tetanus, Diphtheria Vaccination/Date Given: Yes Hx Influenza Vaccination/Date Given: No Hx Pneumococcal Vaccination/Date Given: No Immunizations Up to Date: Yes Travel Risk - International Travel Have you traveled outside of the country in past 3 weeks: No - Coronavirus Screening Are you exhibiting any of the following symptoms?: No Close contact with a COVID-19 positive Pt in past 14-21 Days: No - Vaccine Status Have you recieved a Covid-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: No - Review of Systems Constitutional: No Symptoms, No Fever, No Chills Eyes: No Symptoms Ears, Nose, & Throat: No Symptoms Respiratory: No Symptoms, No Cough, No Dyspnea Cardiac: No Symptoms, No Chest Pain, No Edema, No Syncope Abdominal/Gastrointestinal: No Symptoms, No Abdominal Pain, No Nausea, No Vomiting, No Diarrhea Genitourinary Symptoms: No Symptoms, No Dysuria Musculoskeletal: No Symptoms, No Back Pain, No Neck Pain Skin: No Symptoms, No Rash Neurological: No Symptoms, No Dizziness, No Focal Weakness, No Sensory Changes Psychological: No Symptoms Endocrine: No Symptoms Hematologic/Lymphatic: No Symptoms All Other Systems: Reviewed and Negative - Past Medical History Pertinent Past Medical History: Yes Neurological History: No Pertinent History ENT History: No Pertinent History Cardiac History: No Pertinent History Respiratory History: Other Endocrine Medical History: No Pertinent History Musculoskeletal History: No Pertinent History GI Medical History: No Pertinent History History: No Pertinent History Psycho-Social History: No Pertinent History Female Reproductive Disorders: No Pertinent History Other Medical History: lung disease- unknown diagnosis 05/31/19, 2 csections, cyst removal on left arm - Past Surgical History Past Surgical History: Yes Neuro Surgical History: No Pertinent History Cardiac: No Pertinent History Respiratory: No Pertinent History Gastrointestinal: No Pertinent History Genitourinary: No Pertinent History Musculoskeletal: No Pertinent History Female Surgical History: Section, Tubal Ligation Other Surgical History: cyst removed from arm and c/s x2 - Social History Smoking Status: Current every day smoker How long have you smoked: 10 Exposure to second hand smoke: Yes Drug Use: none Patient Lives Alone: No Significant Family History: no pertinent family hx - Female History Hx Last Menstrual Period: currently Hx Now: No - Nursing Vital Signs Nursing Vital Signs: Initial Vital Signs Temperature 98.7 F 06/09/20 16:05 Pulse Rate 68 06/09/20 16:05 Respiratory Rate 18 06/09/20 16:05 Blood Pressure 170/86 06/09/20 16:05 O2 Sat by Pulse Oximetry 99 06/09/20 16:05 Pain Scale Pain Intensity 10 - Physical Exam General Appearance: no apparent distress, alert Eye Exam: PERRL/EOMI, eyes nml inspection Ears, Nose, Throat Exam: normal ENT inspection, TMs normal, pharynx normal, moist mucous membranes, other (All upper teeth have been extracted. No signs of infection. No intraoral lesions. Uvula midline. No sublingual swelling. Airway patent) Neck Exam: normal inspection, non-tender, supple, full range of motion Respiratory Exam: normal breath sounds, lungs clear, No respiratory distress Cardiovascular Exam: regular rate/rhythm, normal heart sounds, normal peripheral pulses Gastrointestinal/Abdomen Exam: soft, normal bowel sounds, No tenderness, No mass Back Exam: normal inspection, normal range of motion, No CVA tenderness, No vertebral tenderness Extremity Exam: normal inspection, normal range of motion, pelvis stable Neurologic Exam: alert, oriented x 3, cooperative, normal mood/affect, nml cerebellar function, nml station & gait, sensation nml, No motor deficits Skin Exam: normal color, warm, dry, No rash Lymphatic Exam: No adenopathy SpO2 Interpretation: normal SpO2: 99 O2 Delivery: Room Air - Course Nursing assessment & vital signs reviewed: Yes Ordered Tests: Medication Summary Discontinued Medications Generic Name Dose Route Start Last Admin Trade Name Freq PRN Reason Stop Dose Admin Ketorolac Tromethamine 30 mg 06/09/20 16:19 Toradol 30 Mg Injection IM 06/09/20 16:20 STAT ONE - Progress Progress: improved Progress Note: 06/09/20 16:25 Patient reassessed. Pain improved. Vitals stable. Will discharge patient home. Patient will receive a prescription for Toradol and penicillin VK. Patient has an appointment scheduled with her dentist next week. Patient voices no other complaints or concerns at this time. 06/09/20 16:25 Counseled pt/family regarding: diagnosis, need for follow-up - Departure Departure Disposition: Home Clinical Impression: Dental implant pain Condition: Stable Critical Care Time: No Referrals: DOCTOR,NO FAMILY [Primary Care Provider] - Prescriptions: Penicillin V Potassium 500 mg PO TID 7 Days #21 tablet Ketorolac Tromethamine [Toradol] 10 mg PO TID 5 Days #15 tablet
[2020-06-09] MEDS ORDERED: TORAdol 30 mg Injection ONE (16:44)
[2020-06-09 16:52] VITALS: BP 143/86; PULSE 50
== END 2020-06-09 16:58 | disposition home or self-care (01) ==
LOC: ED 15:56
DX: M27.63 Post-osseointegration mechanical failure of dental implant (principal)
CPT/HCPCS: 96372; 99283; J1885

== ENCOUNTER 2022-03-25 15:19 | Emergency (ER) | payer OTHER ==
--- NOTE | 2022-03-25 15:23 | ERPHSYRPT ---
- History of Present Illness Time Seen by Provider: 03/25/22 15:23 Source: patient Exam Limitations: no limitations Physician History: This is a 32-year-old white female who had 2 teeth extracted 2 days ago. She was placed on Toradol pain medication. She is concerned about infection in these sites. She also states the Toradol is not helping much so she added Tylenol 1 g. She last took a dose almost 5 hours ago. She called her dentist office but there was no answer. Severity: mild (Moderate) Modifying Factors: Improves With: other (Mastication worsens the pain) Associated Symptoms: denies symptoms Allergies/Adverse Reactions: propoxyphene napsylate [From Coiney-N 100] Allergy (Intermediate, Verified 06/09/20 16:04) "COULDN'T BREATH" morphine Allergy (Verified 06/09/20 16:04) Home Medications: Ketorolac Tromethamine [Toradol] 10 mg PO Q6-8HPRN PRN 03/25/22 [History] Hx Tetanus, Diphtheria Vaccination/Date Given: Yes Hx Influenza Vaccination/Date Given: No Hx Pneumococcal Vaccination/Date Given: No Travel Risk - International Travel Have you traveled outside of the country in past 3 weeks: No - Coronavirus Screening Are you exhibiting any of the following symptoms?: No Close contact with a COVID-19 positive Pt in past 14-21 Days: No - Vaccine Status Have you recieved a Covid-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: No - Review of Systems Constitutional: No Symptoms Eyes: No Symptoms Ears, Nose, & Throat: Other (Dental pain) Respiratory: No Symptoms Cardiac: No Symptoms Abdominal/Gastrointestinal: No Symptoms Genitourinary Symptoms: No Symptoms Musculoskeletal: No Symptoms Skin: No Symptoms Neurological: No Symptoms Psychological: No Symptoms Endocrine: No Symptoms Hematologic/Lymphatic: No Symptoms Immunological/Allergic: No Symptoms All Other Systems: Reviewed and Negative - Past Medical History Pertinent Past Medical History: Yes Neurological History: No Pertinent History ENT History: No Pertinent History Cardiac History: No Pertinent History Respiratory History: Other Endocrine Medical History: No Pertinent History Musculoskeletal History: No Pertinent History GI Medical History: No Pertinent History History: No Pertinent History Psycho-Social History: No Pertinent History Female Reproductive Disorders: No Pertinent History Other Medical History: lung disease- unknown diagnosis 05/31/19, 2 csections, cyst removal on left arm - Past Surgical History Past Surgical History: Yes Neuro Surgical History: No Pertinent History Cardiac: No Pertinent History Respiratory: No Pertinent History Gastrointestinal: No Pertinent History Genitourinary: No Pertinent History Musculoskeletal: No Pertinent History Female Surgical History: Section, Tubal Ligation Other Surgical History: cyst removed from arm and c/s x2 - Social History Smoking Status: Current every day smoker How long have you smoked: 10 Exposure to second hand smoke: Yes Drug Use: none Patient Lives Alone: No Significant Family History: no pertinent family hx - Nursing Vital Signs Nursing Vital Signs: Initial Vital Signs Temperature 97.7 F 03/25/22 15:26 Pulse Rate 88 03/25/22 15:26 Blood Pressure 144/85 03/25/22 15:26 O2 Sat by Pulse Oximetry 100 03/25/22 15:26 Pain Scale Pain Intensity 10 - Physical Exam General Appearance: no apparent distress, alert, anxiety Eye Exam: PERRL/EOMI, eyes nml inspection Ears, Nose, Throat Exam: other (Bilateral dental extraction sites healing well with fibrinous exudate present. No pus and no bleeding appreciated) Neck Exam: normal inspection, non-tender, supple, full range of motion Respiratory Exam: airway intact, No chest tenderness, No respiratory distress Gastrointestinal/Abdomen Exam: No tenderness Pelvic Exam: not done Rectal Exam: not done Back Exam: normal inspection, normal range of motion, No CVA tenderness, No vertebral tenderness Extremity Exam: normal inspection, normal range of motion, pelvis stable Neurologic Exam: alert, oriented x 3, cooperative, underwater photographer II-XII nml as tested, normal mood/affect, nml cerebellar function, nml station & gait, sensation nml Skin Exam: normal color, warm, dry Lymphatic Exam: No adenopathy SpO2 Interpretation: normal O2 Delivery: Room Air - Course Nursing assessment & vital signs reviewed: Yes - Progress Progress: unchanged Counseled pt/family regarding: diagnosis, need for follow-up - Departure Departure Disposition: Home Clinical Impression: Pain, dental Condition: Stable Critical Care Time: No Referrals: AMBIKA ROACH MD [Primary Care Provider] - Follow up/PCP as directed Additional Instructions: Take your antibiotics as prescribed. Continue taking your Toradol as prescribed. Do not take more than 1 g every 6 hours of the Tylenol. Start this after you complete your pain medicine ([place] 5/325) we provided you. Call your dentist for definitive care Prescriptions: Cephalexin Mh 500 mg [Keflex 500 mg] 500 mg PO TID #21 cap
[2022-03-25 15:37] VITALS: BP 144/85; PULSE 88; O2SAT 100
[2022-03-25] MEDS ORDERED: KEFLEX 500 MG PO ONE (15:49)
[2022-03-25] MEDS ORDERED: NORCO 5/325 MG PO ONE ×2 (15:50)
[2022-03-25] MEDS ORDERED: KEFLEX 500 MG ONE (15:54)
[2022-03-25] MEDS ORDERED: NORCO 5/325 MG ONE (15:54)
== END 2022-03-25 16:00 | disposition home or self-care (01) ==
LOC: ED 15:19
DX: K08.89 Other specified disorders of teeth and supporting structures (principal); Z28.310 Unvaccinated for COVID-19; Z72.0 Tobacco use
CPT/HCPCS: 99282; A9270-GY

== ENCOUNTER 2022-12-18 10:35 | Emergency (ER) | payer MEDICAID, OTHER ==
[2022-12-18 10:50] VITALS: BP 147/87; PULSE 89; TEMP 98.5; O2SAT 99
[2022-12-18] MEDS ORDERED: TORAdol 30 mg Injection IM ONE ×2 (10:56→11:00)
[2022-12-18] MEDS ORDERED: TORAdol 30 mg Injection ONE (10:58)
--- NOTE | 2022-12-18 11:01 | ERPHSYRPT ---
- History of Present Illness Time Seen by Provider: 12/18/22 10:58 Source: patient Exam Limitations: no limitations Patient Subjective Stated Complaint: headache. shortness of breath Triage Nursing Assessment: Pt was brought to the ER by her , hypertensive, rates head pain as 9/10, pulses normal, skin n/w/d, smokes, cough, lungs clear, doesn't appear to be in any distress Physician History: Patient is a 32-year-old female who attended a wedding shower at which several people apparently had COVID and she now presents with a history of a home test being positive generalized body aches severe headache and some cough. Timing/Duration: yesterday Cough Quality/Degree: dry cough Possible Cause: no prior episodes Modifying Factors: Improves With: coughing Associated Symptoms: cough, headache, muscle aches, shortness of breath Allergies/Adverse Reactions: propoxyphene napsylate [From DarContinuumt-N 100] Allergy (Intermediate, Verified 12/18/22 10:51) "COULDN'T BREATH" morphine Allergy (Verified 12/18/22 10:51) Home Medications: No Reportable Medications [No Reported Medications] 12/18/22 [History] Hx Tetanus, Diphtheria Vaccination/Date Given: Yes Hx Influenza Vaccination/Date Given: No Hx Pneumococcal Vaccination/Date Given: No Travel Risk - International Travel Have you traveled outside of the country in past 3 weeks: No - Coronavirus Screening Are you exhibiting any of the following symptoms?: Yes Symptoms: Shortness of Breath, Headaches/Body Aches/Fatigue - Vaccine Status Have you recieved a Covid-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: Yes 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: [email or web address] - Vaccination Dates Date of 2cond Vaccination (if applicable): 2020 - Review of Systems Constitutional: No Fever, No Chills Eyes: No Symptoms Ears, Nose, & Throat: No Symptoms Respiratory: Cough, No Dyspnea Cardiac: No Chest Pain, No Edema, No Syncope Abdominal/Gastrointestinal: No Abdominal Pain, No Nausea, No Vomiting, No Diarrhea Genitourinary Symptoms: No Dysuria Musculoskeletal: Arthralgias, Myalgias, No Back Pain, No Neck Pain Skin: No Rash Neurological: Headache, No Dizziness, No Focal Weakness, No Sensory Changes Psychological: No Symptoms Endocrine: No Symptoms All Other Systems: Reviewed and Negative - Past Medical History Pertinent Past Medical History: Yes Neurological History: No Pertinent History ENT History: No Pertinent History Cardiac History: No Pertinent History Respiratory History: Other Endocrine Medical History: No Pertinent History Musculoskeletal History: No Pertinent History GI Medical History: No Pertinent History History: No Pertinent History Psycho-Social History: No Pertinent History Female Reproductive Disorders: No Pertinent History Other Medical History: lung disease- unknown diagnosis 05/31/19, 2 csections, cyst removal on left arm - Past Surgical History Past Surgical History: Yes Neuro Surgical History: No Pertinent History Cardiac: No Pertinent History Respiratory: No Pertinent History Gastrointestinal: No Pertinent History Genitourinary: No Pertinent History Musculoskeletal: No Pertinent History Female Surgical History: Section, Tubal Ligation Other Surgical History: cyst removed from arm and c/s x2 - Social History Smoking Status: Current every day smoker How long have you smoked: 10 Exposure to second hand smoke: Yes Drug Use: none Patient Lives Alone: No Significant Family History: no pertinent family hx - Female History Hx Now: No (tubal) - Nursing Vital Signs Nursing Vital Signs: Initial Vital Signs Temperature 98.5 F 12/18/22 10:43 Pulse Rate 89 12/18/22 10:43 Blood Pressure 147/87 12/18/22 10:43 O2 Sat by Pulse Oximetry 99 12/18/22 10:43 Pain Scale Pain Intensity 9 - Physical Exam General Appearance: mild distress, alert Eye Exam: PERRL/EOMI, eyes nml inspection Ears, Nose, Throat Exam: normal ENT inspection, TMs normal, pharynx normal, moist mucous membranes Neck Exam: normal inspection, non-tender, supple, full range of motion Respiratory Exam: normal breath sounds, lungs clear, No respiratory distress Cardiovascular Exam: regular rate/rhythm, normal heart sounds Gastrointestinal/Abdomen Exam: soft, No tenderness Back Exam: normal inspection, No CVA tenderness, No vertebral tenderness Extremity Exam: normal inspection, normal range of motion Neurologic Exam: alert, oriented x 3, cooperative, normal mood/affect, sensation nml, No motor deficits Skin Exam: normal color, warm, dry, No rash Lymphatic Exam: No adenopathy SpO2: 99 Ordered Tests: Active Orders 24 hr Category Date Time Status CHEST 1 VIEW (PORTABLE) Stat Exams 12/18/22 11:12 Taken CBC W DIFF Stat Lab 12/18/22 11:20 Completed CMP Stat Lab 12/18/22 11:20 Completed Medication Summary Discontinued Medications Generic Name Dose Route Start Last Admin Trade Name Freq PRN Reason Stop Dose Admin Ketorolac Tromethamine 30 mg 12/18/22 10:56 12/18/22 11:01 Ketorolac Tromethamine 30 Mg/Ml Inj IM 12/18/22 10:57 Not Given STAT ONE Ketorolac Tromethamine Confirm 12/18/22 10:58 Ketorolac Tromethamine 30 Mg/Ml Inj Administered 12/18/22 10:59 Dose 60 mg .ROUTE .STK-MED ONE Ketorolac Tromethamine 60 mg 12/18/22 11:00 12/18/22 11:01 Ketorolac Tromethamine 30 Mg/Ml Inj IM 12/18/22 11:01 60 mg STAT ONE Administration Lab/Rad Data: Laboratory Result Diagrams 12/18/22 11:20 12/18/22 11:20 Laboratory Results 12/18/22 12/18/22 12/18/22 Range/Units 11:20 11:20 11:20 WBC 5.2 (4.0-10.5) x10^3/uL RBC 4.66 (4.1-5.4) x10^6/uL Hgb 14.7 (12.0-16.0) g/dL Hct 44.3 (35-47) % MCV 95.1 (78-100) fL MCH 31.5 (26-32) pg MCHC 33.2 (32-36) g/dL RDW 12.6 (11.5-14.0) % Plt Count 196 (150-450) x10^3/uL MPV 10.6 (7.5-11.0) fL Gran % 46.4 (36.0-66.0) % Immature Gran % (Auto) 0.4 (0.00-0.4) % Nucleat RBC Rel Count 0.0 (0.00-0.1) % Eos # (Auto) 0.38 (0-0.5) x10^3/uL Immature Gran # (Auto) 0.02 (0.00-0.03) x10^3u/L Absolute Lymphs (auto) 1.76 (1.0-4.6) x10^3/uL Absolute Monos (auto) 0.55 (0.0-1.3) x10^3/uL Absolute Nucleated RBC 0.00 (0.00-0.01) x10^3u/L Lymphocytes % 33.8 (24.0-44.0) % Monocytes % 10.6 (0.0-12.0) % Eosinophils % 7.3 H (0.00-5.0) % Basophils % 1.5 (0.0-0.4) % Absolute Granulocytes 2.41 (1.4-6.9) x10^3/uL Basophils # 0.08 (0-0.4) x10^3/uL Sodium 137 (137-145) mmol/L Potassium 3.7 (3.5-5.1) mmol/L Chloride 107 (98-107) mmol/L Carbon Dioxide 26 (22-30) mmol/L Anion Gap 7.5 (5-15) MEQ/L BUN 5 L (7-17) mg/dL Creatinine 0.61 (0.52-1.04) mg/dL Estimated GFR > 60.0 ML/MIN Glucose 118 H (74-106) mg/dL Calcium 8.6 (8.4-10.2) mg/dL Total Bilirubin 0.40 (0.2-1.3) mg/dL AST 121 H (14-36) U/L ALT 111 H (0-35) U/L Alkaline Phosphatase 46 (38-126) U/L Serum Total Protein 6.2 L (6.3-8.2) g/dL Albumin 3.6 (3.5-5.0) g/dL Influenza Type A Ag NEGATIVE (NEGATIVE) Influenza Type B Ag NEGATIVE (NEGATIVE) RSV (PCR) NEGATIVE (NEGATIVE) SARS-CoV-2 (PCR) POSITIVE A (NEGATIVE) - Progress Progress: improved Air Movement: good Blood Culture(s) Obtained: No Antibiotics given: No Medical Desision Making - Diagnostic Testing Radiological Interpretation: Interpreted by me - Risk of complications Minimal Risk: Minimal risk of morbidity - Departure Departure Disposition: Home Clinical Impression: COVID Condition: Stable Critical Care Time: No Referrals: AMBIKA ROACH MD [Primary Care Provider] - Follow up/PCP as directed Instructions: COVID-19 (DC)
[2022-12-18 11:23] LABS: Absolute Neutrophil Ct (ANC) 2.41 x10^3/uL (1.4-6.9); BASOPHIL % 1.5 % (0.0-0.4); Basophil (Absolute #) 0.08 x10^3/uL (0-0.4); Eosinophil % 7.3 % (0.00-5.0); Eosinophil (Absolute #) 0.38 x10^3/uL (0-0.5); Hematocrit 44.3 % (35-47); Hemoglobin 14.7 g/dL (12.0-16.0); IMMATURE GRAN # 0.02 x10^3u/L (0.00-0.03); IMMATURE GRAN % 0.4 % (0.00-0.4); Lymphocyte (Absolute #) 1.76 x10^3/uL (1.0-4.6); Lymphocytes % 33.8 % (24.0-44.0); Mean Cell Volume 95.1 fL (78-100); Mean Corpuscular Hemoglobin 31.5 pg (26-32); Mean Corpuscular Hgb Concent. 33.2 g/dL (32-36); Mean Platelet Volume 10.6 fL (7.5-11.0); Monocyte (Absolute #) 0.55 x10^3/uL (0.0-1.3); Monocytes % 10.6 % (0.0-12.0); Neutrophil % 46.4 % (36.0-66.0); Platelet Count 196 x10^3/uL (150-450); Red Blood Count 4.66 x10^6/uL (4.1-5.4); Red Cell Distribution Width 12.6 % (11.5-14.0); White Blood Count 5.2 x10^3/uL (4.0-10.5)
[2022-12-18 11:37] LABS: ALBUMIN 3.6 g/dL (3.5-5.0); ALKALINE PHOSPHATASE 46 U/L (38-126); ANION GAP 7.5 MEQ/L (5-15); BLOOD UREA NITROGEN 5 mg/dL (7-17); CHLORIDE 107 mmol/L (98-107); Calcium 8.6 mg/dL (8.4-10.2); Carbon Dioxide 26 mmol/L (22-30); Creatinine 1 0.61 mg/dL (0.52-1.04); EST GLOMERULAR FILTRATION RATE > 60.0 ML/MIN; Glucose 118 mg/dL (74-106); Potassium 3.7 mmol/L (3.5-5.1); SGOT/AST 121 U/L (14-36); SGPT/ALT 111 U/L (0-35); SODIUM 137 mmol/L (137-145); Total Protein 6.2 g/dL (6.3-8.2)
[2022-12-18 11:59] LABS: INFLUENZA A NEGATIVE (NEGATIVE); INFLUENZA B NEGATIVE (NEGATIVE); RESPIRATORY SYNCTIAL VIRUS NEGATIVE (NEGATIVE)
[2022-12-18 12:11] LABS: SARS-CoV-2 Xpert Express POSITIVE (NEGATIVE)
--- NOTE | 2022-12-18 19:58 | XRAY ---
Indication: Fever, cough, and headache. Comparison: April 28, 2020 Portable chest unchanged again hyperinflated with incidental scattered calcified granulomas. Heart not enlarged. Bony thorax intact. No new/acute findings.
== END 2022-12-18 13:05 | disposition home or self-care (01) ==
LOC: ED 10:35
DX: U07.1 COVID-19 (principal); R51.9 Headache, unspecified; M79.10 Myalgia, unspecified site; R05.9 Cough, unspecified; Z20.822 Contact with and (suspected) exposure to COVID-19; Z72.0 Tobacco use
CPT/HCPCS: 0241U; 36415; 71045; 80053; 85025; 96372; 99283; J1885

== ENCOUNTER 2023-02-02 16:39 | Emergency (ER) | payer MEDICAID, OTHER ==
[2023-02-02] MEDS ORDERED: Adacel Vial IM ONE ×2 (16:56→16:59)
[2023-02-02 16:59] VITALS: RESP 14; TEMP 98.7; O2SAT 99
[2023-02-02] MEDS ORDERED: XYLOCAINE 1% HCL 20 ML MDV IJ ONE (17:00)
[2023-02-02] MEDS ORDERED: BACIGUENT PACKET TP ONE (17:23)
[2023-02-02] MEDS ORDERED: BACIGUENT PACKET ONE (17:24)
--- NOTE | 2023-02-02 17:38 | ERPHSYRPT ---
- History of Present Illness Time Seen by Provider: 02/02/23 16:50 Source: patient Exam Limitations: no limitations Patient Subjective Stated Complaint: pt states that she was cutting [place] when the knife slipped and cut her finger Triage Nursing Assessment: pt ambulated into the er; pt is axo x4; c/o laceration; laceration to left distal index finger; wound is reienforced with quaze; laceration measures 1.5 cm x 0.1 cm; good cap refill to left hand; strong left radial pulse; no respiratory distress present; skin PDW; hypertensive Physician History: 33-year-old female presents to our ED for evaluation of a laceration to the distal aspect of the left index finger. Patient was cutting a [place] with a knife. Patient states the night slipped and cut her finger. Injury occurred just prior to arrival. Patient has a 1.5 cm laceration to the lateral aspect of her left index finger just at the level of the DIP. No other injuries reported. Tetanus is not up-to-date. Patient voices no other complaints or concerns at this time. Portions of this note were created with voice recognition technology. There may be grammatical, spelling, punctuation or sound alike errors Timing/Duration: today Severity: moderate Modifying Factors: Improves With: nothing Associated Symptoms: denies symptoms Allergies/Adverse Reactions: propoxyphene napsylate [From Darvocet-N 100] Allergy (Intermediate, Verified 02/02/23 16:47) "COULDN'T BREATH" morphine Allergy (Verified 02/02/23 16:47) Hx Tetanus, Diphtheria Vaccination/Date Given: No Hx Influenza Vaccination/Date Given: No Hx Pneumococcal Vaccination/Date Given: No Travel Risk - International Travel Have you traveled outside of the country in past 3 weeks: No - Coronavirus Screening Are you exhibiting any of the following symptoms?: No Close contact with a COVID-19 positive Pt in past 14-21 Days: No - Vaccine Status Have you recieved 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-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[employer]: [employer] - Vaccination Dates Date of 2cond Vaccination (if applicable): 2020 - Review of Systems Constitutional: No Symptoms, No Fever, No Chills Eyes: No Symptoms Ears, Nose, & Throat: No Symptoms Respiratory: No Symptoms, No Cough, No Dyspnea Cardiac: No Symptoms, No Chest Pain, No Edema, No Syncope Abdominal/Gastrointestinal: No Symptoms, No Abdominal Pain, No Nausea, No Vomiting, No Diarrhea Genitourinary Symptoms: No Symptoms, No Dysuria Musculoskeletal: No Symptoms, No Back Pain, No Neck Pain Skin: No Symptoms, No Rash Neurological: No Symptoms, No Dizziness, No Focal Weakness, No Sensory Changes Psychological: No Symptoms Endocrine: No Symptoms Hematologic/Lymphatic: No Symptoms Immunological/Allergic: No Symptoms All Other Systems: Reviewed and Negative - Past Medical History Pertinent Past Medical History: Yes Neurological History: No Pertinent History ENT History: No Pertinent History Cardiac History: No Pertinent History Respiratory History: Other Endocrine Medical History: No Pertinent History Musculoskeletal History: No Pertinent History GI Medical History: No Pertinent History History: No Pertinent History Psycho-Social History: No Pertinent History Female Reproductive Disorders: No Pertinent History Other Medical History: lung disease- unknown diagnosis 05/31/19, 2 csections, cyst removal on left arm - Past Surgical History Past Surgical History: Yes Neuro Surgical History: No Pertinent History Cardiac: No Pertinent History Respiratory: No Pertinent History Gastrointestinal: No Pertinent History Genitourinary: No Pertinent History Musculoskeletal: No Pertinent History Female Surgical History: Section, Tubal Ligation Other Surgical History: cyst removed from arm and c/s x2 - Social History Smoking Status: Current every day smoker How long have you smoked: 10 Exposure to second hand smoke: Yes Drug Use: none Patient Lives Alone: No Significant Family History: no pertinent family hx - Female History Hx Now: No - Nursing Vital Signs Nursing Vital Signs: Initial Vital Signs Temperature 98.7 F 02/02/23 16:42 Pulse Rate 85 02/02/23 16:42 Respiratory Rate 14 02/02/23 16:42 Blood Pressure 158/97 02/02/23 16:42 O2 Sat by Pulse Oximetry 99 02/02/23 16:42 Pain Scale Pain Intensity 2 - Physical Exam General Appearance: no apparent distress, alert Eye Exam: PERRL/EOMI, eyes nml inspection Ears, Nose, Throat Exam: normal ENT inspection, moist mucous membranes Neck Exam: normal inspection, non-tender, supple, full range of motion Respiratory Exam: normal breath sounds, airway intact, No respiratory distress Cardiovascular Exam: regular rate/rhythm, normal peripheral pulses Gastrointestinal/Abdomen Exam: No tenderness, No mass Back Exam: normal inspection, normal range of motion, No CVA tenderness, No vertebral tenderness Extremity Exam: normal inspection, normal range of motion, pelvis stable, other (1.5 cm laceration to the lateral aspect of the left distal index finger. The involved fingers neurovascular intact distally. Compartments are soft cap refill less than 2 seconds. Radial pulse palpable) Neurologic Exam: alert, oriented x 3, cooperative, normal mood/affect, nml cerebellar function, nml station & gait, sensation nml, No motor deficits Skin Exam: normal color, warm, dry, No rash Lymphatic Exam: No adenopathy SpO2 Interpretation: normal SpO2: 99 O2 Delivery: Room Air Procedures - Laceration/Wound Repair Left Finger Time of Procedure: 17:42 Wound Location: Left (Left index finger) Wound Length (cm): 1.5 Wound's Depth, Shape: superficial Wound Explored: clean Irrigated: Yes Hibiclens Prep: Yes Anesthesia: 1% Lidocaine Volume Anesthetic (ccs): 3 Wound Debrided: No debridement indicated Wound Repaired With: sutures Suture Size/Type: 5-0, ethilon Number of Sutures: 4 Layer Closure?: No Sterile Dressing Applied?: Yes Splint Applied?: Yes Type of Splint Applied: AlumaFoam splint applied to the involved left index finger Sling Applied?: No - Course Nursing assessment & vital signs reviewed: Yes Ordered Tests: Medication Summary Discontinued Medications Generic Name Dose Route Start Last Admin Trade Name Arelis PRN Reason Stop Dose Admin Bacitracin Zinc 0.9 each 02/02/23 17:23 02/02/23 17:25 Bacitracin Packet 1 Each Pckt TP 02/02/23 17:24 0.9 each STAT ONE Administration Bacitracin Zinc Confirm 02/02/23 17:24 Bacitracin Packet 1 Each Pckt Administered 02/02/23 17:25 Dose 1 each .ROUTE .STK-MED ONE Diphtheria/Tetanus/Acell Pertussis 0.5 ml 02/02/23 16:56 02/02/23 17:01 Tdap --Diph,Pertuss(Acell),Tet Vac/Pf 0.5 Ml Vial IM 02/02/23 16:57 0.5 ml .ONCE ONE Administration Diphtheria/Tetanus/Acell Pertussis Confirm 02/02/23 16:59 Tdap --Diph,Pertuss(Acell),Tet Vac/Pf 0.5 Ml Vial Administered 02/02/23 17:00 Dose 0.5 ml IM .STK-MED ONE Lidocaine HCl 3 ml 02/02/23 17:00 02/02/23 17:01 Lidocaine Hcl 1% 20 Ml Mdv 20 Ml Ml IJ 02/02/23 17:01 3 ml STAT ONE Administration - Progress Progress: improved Progress Note: 33-year-old female presents to our ED with laceration to the left index finger. Laceration measures 1.5 cm. Physical exam reveals a 1.5 cm laceration to the distal aspect of the left index finger. The involved digits neurovascular intact distally. The wound was irrigated. Patient requested closure using suture. Laceration closed using 4 simple interrupted sutures. Patient neurovascular tact distally post procedure. Patient tolerated procedure well. No intra or postprocedural complications. antibiotic forwarded to patient's pharmacy. 7-day course of Keflex to patient's pharmacy antibiotic to be used if patient develops signs of infection. We discussed the findings that would i ndicate infection. Portions of this note were created with voice recognition technology. There may be grammatical, spelling, punctuation or sound alike errors Complexity problem addressed is low acute uncomplicated No critical care time Complex of data reviewed and analyzed is none. Diagnosis made based on history and physical exam. Risk of complication and or risk of morbidity/mortality of patient management is moderate. Prescription for Keflex forwarded to patient's pharmacy. Vital stable. Patient agrees to follow-up with primary care doctor within 48 hours for evaluation. Time spent to discharge patient is approximately 15 minutes. Plan of care established for shared decision making. No social determinants of health present impede follow-up. Portions of this note were created with voice recognition technology. There may be grammatical, spelling, punctuation or sound alike errors 02/02/23 17:44 Counseled pt/family regarding: diagnosis, need for follow-up - Departure Departure Disposition: Home Clinical Impression: Laceration Condition: Stable Critical Care Time: No Referrals: AMBIKA ROACH MD [Primary Care Provider] - Follow up/PCP as directed Instructions: Laceration Repair With Stitches ED Additional Instructions: Discharge/Care Plan DULCE ARGUETA was seen on 02/02/23 in the Emergency Room. The patient was counseled regarding Diagnosis,Lab results, Imaging studies, need for follow up and when to return to the Emergency Room. Prescriptions given: Discharge Note I have spoken with the patient and/or caregivers. I have explained the patient's condition, diagnosis and treatment plan based on the information available to me at this time. I have answered the patient's and/or caregiver's questions and addressed any concerns. The patient and/or caregivers have as good understanding of the patient's diagnosis, condition and treatment plan as can be expected at this point. The vital signs have been stable. The patient's condition is stable and appropriate for discharge from the emergency department. The patient will pursue further outpatient evaluation with the primary care physician or other designated or consulting physician as outlined in the discharge instructions. The patient and/or caregivers are agreeable to this plan of care and follow-up instructions have been explained in detail. The patient and/or caregivers have received these instruction. The patient/and or caregivers are aware that any significant change in condition or worsening of symptoms should prompt an immediate return to this or the closest emergency department or call 911. Prescriptions: Cephalexin Mh 500 mg [Keflex 500 mg] 500 mg PO TID 7 Days #21 cap
[2023-02-02 17:42] VITALS: BP 115/58; PULSE 86
== END 2023-02-02 17:42 | disposition home or self-care (01) ==
LOC: ED 16:39
DX: S61.211A Laceration without foreign body of left index finger without damage to nail, initial encounter (principal); W26.0XXA Contact with knife, initial encounter; Y93.G1 Activity, food preparation and clean up; Z72.0 Tobacco use; Z23 Encounter for immunization
CPT/HCPCS: 12001; 90471; 90715; 96372; 99283; A9270-GY

== ENCOUNTER 2023-04-20 22:36 | Emergency (ER) | payer SELFPAY ==
[2023-04-20 22:54] VITALS: TEMP 97.8; O2SAT 100
[2023-04-20] MEDS ORDERED: ANTIVERT 25 MG ONE (23:14)
[2023-04-20] MEDS: ANTIVERT 25 MG PO ONE (23:14)
[2023-04-20 23:45] LABS: Group A Strep NOT DETECTED (NEGATIVE)
[2023-04-20 23:56] LABS: INFLUENZA A NEGATIVE (NEGATIVE); INFLUENZA B NEGATIVE (NEGATIVE); RESPIRATORY SYNCTIAL VIRUS NEGATIVE (NEGATIVE); SARS-CoV-2 Xpert Express NEGATIVE (NEGATIVE)
[2023-04-21] MEDS ORDERED: DELTASONE 20 MG ONE (00:17)
[2023-04-21] MEDS: DELTASONE 20 MG PO ONE (00:19)
--- NOTE | 2023-04-21 00:19 | ERPHSYRPT ---
- History of Present Illness Time Seen by Provider: 04/20/23 22:45 Source: patient Exam Limitations: no limitations Patient Subjective Stated Complaint: pt states that everyone in the house has been sick. pt states she has a cough. 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 Patient reports it started initially as a nasal/sinus congestion followed by sore throat and now having nonproductive cough. Patient reports no fever or chills. Does report having dizziness with rapid movements of head and first few steps after getting up from sitting or lying position. Dizziness improved with lying down. Denies any spinning sensation. No numbness tingling or focal weakness. Does have pressure in the sinus area and some pressure in the right ear. Denies any chest pain palpitations or shortness of breath. Patient reports having similar symptoms other family member in the house. No visual disturbance or difficulty speech. Allergies/Adverse Reactions: propoxyphene napsylate [From Darvocet-N 100] Allergy (Intermediate, Verified 04/20/23 22:40) "COULDN'T BREATH" morphine Allergy (Verified 04/20/23 22:40) Hx Tetanus, Diphtheria Vaccination/Date Given: Yes Hx Influenza Vaccination/Date Given: No Hx Pneumococcal Vaccination/Date Given: No Travel Risk - International Travel Have you traveled outside of the country in past 3 weeks: No - Coronavirus Screening Are you exhibiting any of the following symptoms?: Yes Symptoms: Cough: New Onset Close contact with a COVID-19 positive Pt in past 14-21 Days: No - Vaccine Status Have you recieved a Covid-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: Yes 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[employer] - Vaccination Dates Date of 2cond Vaccination (if applicable): 2020 - Review of Systems Constitutional: No Symptoms Eyes: No Symptoms Ears, Nose, & Throat: Nose Congestion, Throat Pain Respiratory: Cough Cardiac: No Symptoms Abdominal/Gastrointestinal: No Symptoms Genitourinary Symptoms: No Symptoms Musculoskeletal: No Symptoms Skin: No Symptoms Neurological: Dizziness Psychological: No Symptoms Endocrine: No Symptoms Hematologic/Lymphatic: No Symptoms Immunological/Allergic: No Symptoms - Past Medical History Pertinent Past Medical History: Yes Neurological History: No Pertinent History ENT History: No Pertinent History Cardiac History: No Pertinent History Respiratory History: Other Endocrine Medical History: No Pertinent History Musculoskeletal History: No Pertinent History GI Medical History: No Pertinent History History: No Pertinent History Psycho-Social History: No Pertinent History Female Reproductive Disorders: No Pertinent History Other Medical History: lung disease- unknown diagnosis 05/31/19, 2 csections, cyst removal on left arm - Past Surgical History Past Surgical History: Yes Neuro Surgical History: No Pertinent History Cardiac: No Pertinent History Respiratory: No Pertinent History Gastrointestinal: No Pertinent History Genitourinary: No Pertinent History Musculoskeletal: No Pertinent History Female Surgical History: Section, Tubal Ligation Other Surgical History: cyst removed from arm and c/s x2 - Social History Smoking Status: Current every day smoker How long have you smoked: 10 Exposure to second hand smoke: Yes Drug Use: none Patient Lives Alone: No Significant Family History: no pertinent family hx - Female History Hx Now: No - Nursing Vital Signs Nursing Vital Signs: Initial Vital Signs Temperature 97.8 F 04/20/23 22:42 Pulse Rate 87 04/20/23 22:42 Respiratory Rate 14 04/20/23 22:42 Blood Pressure 153/103 04/20/23 22:42 O2 Sat by Pulse Oximetry 100 04/20/23 22:42 Pain Scale Pain Intensity 0 - Physical Exam General Appearance: no apparent distress, alert Eye Exam: PERRL/EOMI, eyes nml inspection Ears, Nose, Throat Exam: TMs normal, moist mucous membranes, pharyngeal erythema, other (Negative mastoid tenderness bilaterally) Neck Exam: normal inspection, non-tender, supple, full range of motion, No meningismus Respiratory Exam: normal breath sounds, lungs clear Cardiovascular Exam: regular rate/rhythm, normal heart sounds Gastrointestinal/Abdomen Exam: soft, normal bowel sounds, No tenderness Back Exam: normal inspection Extremity Exam: normal inspection, normal range of motion Neurologic Exam: alert, oriented x 3, cooperative, 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 tested, normal mood/affect, nml cerebellar function, nml station & gait, sensation nml, sensory deficit, No motor deficits Skin Exam: normal color SpO2 Interpretation: normal SpO2: 100 O2 Delivery: Room Air Ordered Tests: Medication Summary Discontinued Medications Generic Name Dose Route Start Last Admin Trade Name Arelis PRN Reason Stop Dose Admin Meclizine HCl 25 mg 04/20/23 23:05 04/20/23 23:14 Meclizine Hcl 25 Mg Tablet PO 04/20/23 23:06 25 mg STAT ONE Administration Meclizine HCl Confirm 04/20/23 23:14 Meclizine Hcl 25 Mg Tablet Administered 04/20/23 23:15 Dose 25 mg .ROUTE .STK-MED ONE Prednisone 60 mg 04/21/23 00:17 04/21/23 00:19 Prednisone 20 Mg Tablet PO 04/21/23 00:18 60 mg STAT ONE Administration Prednisone Confirm 04/21/23 00:17 Prednisone 20 Mg Tablet Administered 04/21/23 00:18 Dose 60 mg .ROUTE .STK-MED ONE Lab/Rad Data: Laboratory Results 04/20/23 Range/Units 23:13 Influenza Type A Ag NEGATIVE (NEGATIVE) Influenza Type B Ag NEGATIVE (NEGATIVE) RSV (PCR) NEGATIVE (NEGATIVE) SARS-CoV-2 (PCR) NEGATIVE (NEGATIVE) Group A Strep Antibody NOT DETECTED (NEGATIVE) - Progress Progress: improved, re-examined Air Movement: good Progress Note: 04/21/23 00:23 33-year-old is evaluated for URI symptoms with cough and congestion and off-and-on dizziness which is more of a positional. No otitis media but does have some right side air-fluid level in the middle ear and some tenderness in the right maxillary sinus area. She has a negative flu COVID RSV and strep. She is given meclizine, on reevaluation she is feeling much better and not dizzy anymore. She has a nonfocal neuroexam. I believe her dizziness is peripheral and do not think she needs imaging or any other workup. She is not orthostatic. I will also give her prednisone here and will continue to go home as patient seems to have some eustachian tube dysfunction as well and will continue with meclizine to take as needed. Discussed signs symptoms of worsening needing return to ER which she seems understanding. Stable for discharge. Blood Culture(s) Obtained: No Antibiotics given: No Counseled pt/family regarding: lab results, diagnosis, need for follow-up Medical Desision Making - Diagnostic Testing Diagnostic test were ordered, analyzed, and reviewed by me: Yes - Risk of complications The pt has a mod risk of morbidity or mortality based on: Need for prescription drug management - Departure Departure Disposition: Home Clinical Impression: Viral syndrome, Peripheral positional vertigo Condition: Stable Critical Care Time: No Referrals: AMBIKA ROACH MD [Primary Care Provider] - Follow up with PCP 1 day Instructions: Vertigo (a Type of Dizziness) (DC), Cough, Adult (DC) Additional Instructions: Plenty of fluids to keep yourself well-hydrated. Take meclizine as needed. Follow-up with your primary care for reevaluation. Return to ER for worsening of dizziness or if having focal numbness tingling weakness or visual di sturbance/difficulty speech. Also return to ER for worsening cough or if having difficulty breathing etc. Prescriptions: Meclizine HCl 25 mg [Antivert 25 mg] 25 mg PO Q8HPRN PRN #12 tablet PRN Reason: Dizziness Amox Tr/Potass Clav. 875 mg [Augmentin 875-125 Tablet] 875 mg PO BID #14 tablet Prednisone 20 mg [Deltasone 20 mg] 60 mg PO DAILY 5 Days #15 tablet
[2023-04-21 00:24] VITALS: BP 130/81; PULSE 88; RESP 12
== END 2023-04-21 00:30 | disposition home or self-care (01) ==
LOC: ED 22:36
DX: B34.9 Viral infection, unspecified (principal); H81.399 Other peripheral vertigo, unspecified ear; R05.1 Acute cough; Z79.52 Long term (current) use of systemic steroids; Z79.899 Other long term (current) drug therapy; Z72.0 Tobacco use
CPT/HCPCS: 0241U; 87651; 99283; A9270-GY

== ENCOUNTER 2023-04-24 17:32 | Emergency (ER) | payer SELFPAY ==
--- NOTE | 2023-04-24 17:54 | ERPHSYRPT ---
- History of Present Illness Time Seen by Provider: 04/24/23 17:54 Source: patient, family Exam Limitations: no limitations Physician History: This is a 33-year-old white female patient of Dr. Roach who has had symptoms of cough, sinus pressure and bilateral ear pressure for approximately 2 weeks total now. Patient was seen in our emergency department on 04/20/2023 and given a prescription for outpatient Antivert to control dizziness while the patient is on Augmentin. In addition she received a prescription for prednisone. Patient stopped the Augmentin because she could not tolerate it secondary to dizziness and nausea. Patient states she recalls 1 antibiotic, azithromycin, does not cause her to have dizziness. Patient denies chest pain. Patient denies shortness of breath. Patient is a daily smoker cigarettes. Patient states that she has had hydrocodone in the past without any problems. Patient had negative viral swabs and negative group A strep swab on 04/20/2023. Timing/Duration: week(s) (2), worse Cough Quality/Degree: mild, dry cough Possible Cause: chronic episodes Modifying Factors: Improves With: coughing Associated Symptoms: cough, earache (Left), nasal congestion (With associated sinus pressure), No chest pain/soreness Allergies/Adverse Reactions: propoxyphene napsylate [From Darvocet-N 100] Allergy (Intermediate, Verified 04/24/23 17:55) "COULDN'T BREATH" morphine Allergy (Verified 04/24/23 17:55) Hx Tetanus, Diphtheria Vaccination/Date Given: Yes Hx Influenza Vaccination/Date Given: No Hx Pneumococcal Vaccination/Date Given: No Travel Risk - International Travel Have you traveled outside of the country in past 3 weeks: No - Coronavirus Screening Are you exhibiting any of the following symptoms?: Yes Symptoms: Cough: New Onset Close contact with a COVID-19 positive Pt in past 14-21 Days: No - Vaccine Status Have you recieved a Covid-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: 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[employer] - Vaccination Dates Date of 2cond Vaccination (if applicable): 2020 - Review of Systems Constitutional: No Symptoms Eyes: No Symptoms Ears, Nose, & Throat: Nose Congestion, Other (Sinus pressure) Respiratory: Cough Cardiac: No Symptoms Abdominal/Gastrointestinal: No Symptoms Genitourinary Symptoms: No Symptoms Musculoskeletal: No Symptoms Skin: No Symptoms Neurological: No Symptoms Psychological: No Symptoms Endocrine: No Symptoms Hematologic/Lymphatic: No Symptoms Immunological/Allergic: No Symptoms All Other Systems: Reviewed and Negative - Past Medical History Pertinent Past Medical History: Yes Neurological History: No Pertinent History ENT History: No Pertinent History Cardiac History: No Pertinent History Respiratory History: Other Endocrine Medical History: No Pertinent History Musculoskeletal History: No Pertinent History GI Medical History: No Pertinent History History: No Pertinent History Psycho-Social History: No Pertinent History Female Reproductive Disorders: No Pertinent History Other Medical History: lung disease- unknown diagnosis 05/31/19, 2 csections, cyst removal on left arm - Past Surgical History Past Surgical History: Yes Neuro Surgical History: No Pertinent History Cardiac: No Pertinent History Respiratory: No Pertinent History Gastrointestinal: No Pertinent History Genitourinary: No Pertinent History Musculoskeletal: No Pertinent History Female Surgical History: Section, Tubal Ligation Other Surgical History: cyst removed from arm and c/s x2 - Social History Smoking Status: Current every day smoker How long have you smoked: 10 Exposure to second hand smoke: Yes Drug Use: none Patient Lives Alone: No Significant Family History: no pertinent family hx - Nursing Vital Signs Nursing Vital Signs: Initial Vital Signs Temperature 99 F 04/24/23 17:56 Pulse Rate 98 H 04/24/23 17:56 Respiratory Rate 14 04/24/23 17:56 Blood Pressure 138/82 04/24/23 17:56 O2 Sat by Pulse Oximetry 97 04/24/23 17:56 Pain Scale Pain Intensity 9 - Physical Exam General Appearance: no apparent distress, alert, anxiety Eye Exam: PERRL/EOMI, eyes nml inspection Ears, Nose, Throat Exam: moist mucous membranes, TM abnormal (R) (Fluid and pressure present), TM abnormal (L) (Fluid and pressure present), other (Sinus pressure to palpation) Neck Exam: normal inspection, non-tender, supple, full range of motion Respiratory Exam: normal breath sounds, lungs clear, airway intact, No chest tenderness, No respiratory distress Cardiovascular Exam: regular rate/rhythm, normal heart sounds, normal peripheral pulses Gastrointestinal/Abdomen Exam: soft, normal bowel sounds, No tenderness Pelvic Exam: not done Rectal Exam: not done Back Exam: normal inspection, normal range of motion, No CVA tenderness, No vertebral tenderness Extremity Exam: normal inspection, normal range of motion, pelvis stable Neurologic Exam: alert, oriented x 3, cooperative, 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 The level of complexity in the workup performed is based on review of the patient's past medical history, review of the patient's medication list, review the patient drug allergy list, history present illness and physical findings on examination. This patient's workup includes CT scan of the head without contrast to evaluate the brain as well as the patient's sinuses. 04/24/23 19:38 CT scan of the head without contrast was interpreted by the radiologist and I reviewed the impression. There is no evidence of any acute intracranial abnormality. The impression does state new mild paranasal sinus disease. Blood Culture(s) Obtained: No Antibiotics given: Yes Counseled pt/family regarding: diagnosis, need for follow-up, rad results Medical Desision Making - Independent Historian Additional History obtained from: Family - Diagnostic Testing Diagnostic test were ordered, analyzed, and reviewed by me: Yes Radiological Interpretation: Reviewed by me, Teleradiologist Report - Risk of complications The pt has a mod risk of morbidity or mortality based on: Need for prescription drug management - Departure Departure Disposition: Home Clinical Impression: Sinusitis Condition: Stable Critical Care Time: No Referrals: AMBIKA ROACH MD [Primary Care Provider] - Follow up/PCP as directed Additional Instructions: Stop your Augmentin. Complete your other steroids before starting the new steroid dosing. Take your oral antibiotics as prescribed. Call your primary care provider tomorrow, 04/25/2023, to make arrangements for follow-up appointment for further evaluation management in the next 3 to 5 days. Prescriptions: Prednisone 10 mg [Deltasone 10 mg] 10 mg PO TID #12 tablet Azithromycin 250 mg [Zithromax 250 MG TABLET] 250 mg PO ZPACK #6 tablet
[2023-04-24 18:05] VITALS: TEMP 99
[2023-04-24 18:06] VITALS: BP 123/78; PULSE 101; RESP 18; O2SAT 96
[2023-04-24] MEDS ORDERED: HYDROCODONE-ACETAMIN 2.5-108/5 ML SOLUTION ONE (19:40)
[2023-04-24] MEDS ORDERED: XYLOCAINE 1% HCL 20 ML MDV ONE (19:40)
[2023-04-24] MEDS ORDERED: Rocephin 1000 MG INJ ONE (19:40)
[2023-04-24] MEDS ORDERED: DELTASONE 20 MG ONE (19:40)
[2023-04-24] MEDS: DELTASONE 20 MG PO ONE (19:45)
[2023-04-24] MEDS: HYDROCODONE-ACETAMIN 2.5-108/5 ML SOLUTION PO STA (19:47)
[2023-04-24] MEDS: Rocephin 1000 MG INJ IM ONE (19:49)
--- NOTE | 2023-04-25 08:43 | XRAY ---
Indication: Dizziness and sinus pressure. Multiple contiguous axial images obtained through the head without contrast. Comparison: December 27, 2019 Normal appearing brain parenchyma, ventricles, and bony calvarium. Worsening mild mucosal thickening both ethmoid/maxillary sinuses with new bilateral maxillary sinus fluid leveling. Mastoid air cells are clear. Impression: Again paranasal sinus disease. Remaining CT head without contrast exam continues to be normal.
== END 2023-04-24 20:10 | disposition home or self-care (01) ==
LOC: ED 17:32
DX: J32.8 Other chronic sinusitis (principal); R05.1 Acute cough; Z72.0 Tobacco use
CPT/HCPCS: 70450; 96372; 99283; J0696; A9270-GY